=== PATIENT | male | born 1960 | race Caucasian/White ===

== ENCOUNTER 2022-06-18 05:07 | Observation (INO) ==
--- NOTE | 2022-05-25 14:56 | PAT Medication Instructions ---
Medication Instructions Date of Service May 25, 2022 Home Medications Medication Instructions Recorded amlodipine 5 mg tablet 2.5 mg PO DAILY #90 tabs 12/24/21 bumetanide 1 mg tablet 1 mg PO DAILY #90 tabs 02/02/22 lisinopril 20 mg tablet 20 mg PO DAILY #90 tabs 02/02/22 pantoprazole 40 mg tablet,delayed 40 mg PO DAILY #90 tabs 02/02/22 release folic acid 1 mg tablet 1 mg PO DAILY #90 tabs 04/17/22 albuterol sulfate 2.5 mg/3 mL (0.083 %) solution for nebulization 2.5 mg inhalation Q4H PRN albuterol sulfate 90 mcg/actuation aerosol inhaler 2 puff inhalation Q6H PRN ascorbate calcium (vitamin C) 1 tab PO DAILY cholecalciferol (vitamin D3) 125 mcg (5,000 unit) capsule 5,000 unit PO DAILY [id number] [Centrum Silver] 1 tab PO DAILY fluticasone fur. 100 mcg-umeclid 62.5 mcg-vilant 25 mcg inhalat.powder (Trelegy Ellipta) 1 inh inhalation QAM vitamin E (dl, acetate) 180 mg (400 unit) capsule 180 mg PO QAM zinc gluconate 50 mg tablet 50 mg PO QAM amlodipine 5 mg tablet 2.5 mg PO DAILY bumetanide 1 mg tablet 1 mg PO DAILY lisinopril 20 mg tablet 20 mg PO DAILY pantoprazole 40 mg tablet,delayed release 40 mg PO DAILY folic acid 1 mg tablet 1 mg PO DAILY ibuprofen 200 mg tablet (Motrin IB) 400 mg PO DAILY PRN Continue as directed amlodipine 5 mg tablet 2.5 mg PO DAILY pantoprazole 40 mg tablet,delayed release 40 mg PO DAILY ASK your surgeon for instructions ibuprofen 200 mg tablet (Motrin IB) 400 mg PO DAILY PRN STOP taking 2 weeks before surgery (or as soon as possible if surgery is within 2 weeks) vitamin E (dl, acetate) 180 mg (400 unit) capsule 180 mg PO QAM folic acid 1 mg tablet 1 mg PO DAILY DO NOT take the morning of surgery ascorbate calcium (vitamin C) 1 tab PO DAILY cholecalciferol (vitamin D3) 125 mcg (5,000 unit) capsule 5,000 unit PO DAILY [id number] [Centrum Silver] 1 tab PO DAILY zinc gluconate 50 mg tablet 50 mg PO QAM lisinopril 20 mg tablet 20 mg PO DAILY bumetanide 1 mg tablet 1 mg PO DAILY Take morning of surgery With a small sip of water, OTHERWISE NOTHING TO EAT OR DRINK AFTER MIDNIGHT: albuterol sulfate 2.5 mg/3 mL (0.083 %) solution for nebulization 2.5 mg inhalation Q4H PRN(if needed) albuterol sulfate 90 mcg/actuation aerosol inhaler 2 puff inhalation Q6H PRN(use if needed; please bring with you to hospital day of surgery if possible) fluticasone fur. 100 mcg-umeclid 62.5 mcg-vilant 25 mcg inhalat.powder (Trelegy Ellipta) 1 inh inhalation QAM Take evening before surgery albuterol sulfate 2.5 mg/3 mL (0.083 %) solution for nebulization 2.5 mg inhalation Q4H PRN(if needed) albuterol sulfate 90 mcg/actuation aerosol inhaler 2 puff inhalation Q6H PRN(if needed) Other Notes If you have any questions please call us at [phone] or [phone] or [phone] or [phone]
--- NOTE | 2022-05-26 08:36 | Anesthesiology Consultation ---
Date of Service May 26, 2022 Assessment & Plan (1) Encounter for pre-operative examination: - Case discussed in detail with Dr. Stock including dyspnea and he reviewed chart, advised pt is acceptable to proceed with surgery without further evaluation or testing from his standpoint. - facial hair: pt was advised to trim/shave facial hair. - Outpatient joint assessment: Patient is currently scheduled for inpatient pathway. If re-evaluated pending system levels during current pandemic/surgeon requests outpatient pathway, patient is not acceptable candidate for outpatient joint program from anesthesia standpoint. Chart Review Chart Review: Acceptable Risk for Surgery and Patient seen in Pre Admission Testing Teaching & Discussion Pre-Anesthesia Teaching/Discussion Notes: Instructed NPO after midnight before surgery, except medications with 15 cc of water. Medication instructions provided according to the PAT guidelines. History Surgery Operation Date: 06/18/22 07:15 Proposed Procedures p Right Shoulder Anatomic or - Lawrence Vazquez MD s Reverse Total Shoulder Arthroplasty - Lawrence Vazquez MD Height/Weight Height: 5 ft 10 in Weight: 152.3 kg Allergies Allergy/AdvReac Type Severity Reaction Status Date / Time No Known Allergies Allergy Verified 05/14/22 09:21 Medications Home Medications Medication Instructions Recorded Confirmed Last Taken albuterol sulfate 2.5 mg/3 mL 2.5 mg inhalation Q4H PRN 07/24/21 05/25/22 Unknown (0.083 %) solution for nebulization Shortness Of Breath Or Wheezing albuterol sulfate 90 mcg/actuation 2 puff inhalation Q6H PRN 07/24/21 05/25/22 Unknown aerosol inhaler Shortness Of Breath Or Wheezing ascorbate calcium (vitamin C) 1 tab PO DAILY 07/24/21 05/25/22 Unknown cholecalciferol (vitamin D3) 125 5,000 unit PO DAILY 07/24/21 05/25/22 Unknown mcg (5,000 unit) capsule [id number]-[id number] 1 tab PO DAILY 07/24/21 05/25/22 Unknown [Centrum Silver] fluticasone fur. 100 mcg-umeclid 1 inh inhalation QAM 10/28/21 05/25/22 Unknown 62.5 mcg-vilant 25 mcg inhalat.powder (Trelegy Ellipta) vitamin E (dl, acetate) 180 mg 180 mg PO QAM 10/28/21 05/25/22 Unknown (400 unit) capsule zinc gluconate 50 mg tablet 50 mg PO QAM 10/28/21 05/25/22 Unknown amlodipine 5 mg tablet 2.5 mg PO DAILY #90 tabs 12/24/21 05/25/22 Unknown bumetanide 1 mg tablet 1 mg PO DAILY #90 tabs 02/02/22 05/25/22 Unknown lisinopril 20 mg tablet 20 mg PO DAILY #90 tabs 02/02/22 05/25/22 Unknown pantoprazole 40 mg tablet,delayed 40 mg PO DAILY #90 tabs 02/02/22 05/25/22 Unknown release folic acid 1 mg tablet 1 mg PO DAILY #90 tabs 04/17/22 05/25/22 Unknown ibuprofen 200 mg tablet (Motrin IB) 400 mg PO DAILY PRN Pain 05/14/22 05/25/22 Unknown Past Medical History Medical History (Updated 05/26/22 @ 08:42 by Grace Alejandro PA-C) Asthma controlled w/ inhaler use; last albuterol inhaler several wks ago Chronic venous insufficiency COPD (chronic obstructive pulmonary disease) Coronary artery disease, non-occlusive cath 23 yrs ago, pre-op per pt GERD (gastroesophageal reflux disease) controlled, stable per pt History of COVID-19 (04/2020) X 3 - 1ST TIME 04/2020- COVID PNEUMONIA - LAST TIME WAS SPRING 2021- COVID PNEUMONIA, NO HOSPITALIZATION; PT UNSURE OF SECOND TIME History of drainage of abscess > 30 YRS AGO - [place] AREA History of recent fall 05/2022- TRIPPED AND FELL, CHEST CONTUSION Hx: recurrent pneumonia LAST TIME HOSPITALIZED 12/2021- WAS NOT COVID POSITIVE AT THAT TIME Hypertension controlled, stable per pt Iron deficiency pt reports IV ferritin annually, intolerant of oral supplementation Obstructive sleep apnea NO DEVICE, CAN NOT TOLERATE Patient denies h/o stroke, seizures, heart attack, heart failure, DM, blood clots or blood transfusions. Exercise / Class Metabolic Activity II 4-5 Yardwork/Stairs/Walk up hill (shortness of breath with 1 FOS, denies chest discomfort; ongoing x yrs without change or worsening) Past Family History Family History Father , age 63 Prostate cancer Skin cancer Myocardial infarction Diabetes CHF (congestive heart failure) Emphysema lung Mother , age 64 Myocardial infarction Diabetes Other Hypertension Denies family history of Ovarian cancer Breast cancer Colorectal cancer Past Surgical History Surgical History (Updated 05/26/22 @ 08:43 by Grace Alejadnro PA-C) History of esophagogastroduodenoscopy (EGD) History of lung biopsy benign Hx of cardiac catheterization NO STENTS - 1ST ~ 26 YRS AGO --2ND ~23 YRS AGO - [facility]- LAST CARDIO VISIT 12/2021- [facility] [place] [facility] - UNSURE Hx of colonoscopy S/P cholecystectomy S/P gastric surgery "stomach stapling" S/P hernia repair ventral, post-op S/P vasectomy Past Anesthesia History No Hx of Anesthesia Complications and No Family Hx of Anesthesia Complications History of PONV No Hx of PONV and Hx of Motion Sickness Social History Smoking Status: Never smoker Do You Dip or Chew Tobacco: No Hx Alcohol Use: No Hx Substance Use: No substance use type: does not use Review of Systems Chronic non-productive cough and wheezing, denies change or worsening. Patient denies chest pain, fever, chills, or palpitations. Physical Exam Vital Signs Vitals BP 140/90 P 76 TEMP 97.5 SP02 96% on RA RESP 18 Physical Long patiño Full cervical extension range of motion without pain TMD 3.5 finger breadths Mallampati Score 2 Dentition: edentulous Lungs: normal respiratory effort. Good air movement, clear throughout to auscultation, no adventitious breath sounds Cardiac: regular rate and rhythm, no murmurs noted Carotid arteries: negative bruit bilat Lab Results Anesthesia Preop Results Results Anesthesia Widget: WBC 8.31 K/ul (4.8-10.8) 05/26/22 Hgb 12.2 g/dl (14.0-18.0) L 05/26/22 Hct 38.4 % (40.1-51.0) L 05/26/22 Plt 309 K/uL (130-400) 05/26/22 Na 139 mmol/L (136-145) 05/26/22 K 3.9 mmol/L (3.5-5.1) 05/26/22 Cl 107 mmol/L (98-107) 05/26/22 CO2 28 mmol/L (21-32) 05/26/22 BUN 17 mg/dl (6-23) 05/26/22 Creat 0.88 mg/dl (0.6-1.4) 05/26/22 Glucose Level 137 mg/dl (70-99(Fasting)) H 05/26/22 PT 10.9 Seconds (9.0-12.0) 05/26/22 PTT 27.5 Seconds (21.0-31.0) 05/26/22 INR 1.0 (0.9-1.1) 05/26/22 Blood Type O Positive 05/26/22 Antibody Screen NEGATIVE 05/26/22 Testing Electrocardiogram Date: 12/06/21 Sinus rhythm, rate 98 bpm Chest X-Ray Date: 12/18/21 No active cardiopulmonary disease Previously demonstrated mild hazy infiltrates in the lung bases have resolved Echocardiogram Date: 12/07/21 EF 50-55% Mild diffuse hypokinesis No significant valvular pathology Stress Test Date: 12/30/21 Pharmacologic MPHR 60% 1. Negative myocardial perfusion study for ischemia. 2. Fixed defects likely due to attenuation artifact given normal wall motion. 3. Normal LV systolic function. EF 66%. 4. No significant Lexiscan induced symptoms. 5. Nondiagnostic Lexiscan ECG. Other Testing CT thorax 05/04/22 Mild dependent atelectatic changes at bilateral lung bases Probable scarring at the right lung apex is unchanged over multiple examinations No acute intrathoracic abnormality Redemonstration of patulous thoracic esophagus Chest CTA 12/06/21 Subtle patchy infiltrates in the upper lobes suspicious for early pneumonia possibly of COVID-19 origin Esophageal dilatation appears slightly more prominent than on prior studies. Soft tissue thickening in the EG junction however has not changed significantly COVID-19 Risk Screen Screening Information COVID-19 Screen Date: 05/26/22 Exposure 21 Days Family/Household +COVID Last 21 Days: No Exposure 10 Days Any COVID Exposure Last 10 Days: No Symptoms Last 10 Days Experienced COVID Sx Last 10 Days: No + COVID 0-90 Days COVID + in Last 0-90 Days: No
[2022-06-18] MEDS ORDERED: LR 60ML/HR IV SCH (06:00)
[2022-06-18] MEDS ORDERED: LR 15ML/HR IV SCH (06:00)
[2022-06-18] MEDS ORDERED: BUPIVACAINE 0.5 % 5 MG/1 ML PF 10ML VIAL ONE (06:29)
[2022-06-18] MEDS ORDERED: MIDAZOLAM HCL 1 MG/ML 2ML VIAL ONE (06:48)
[2022-06-18] MEDS ORDERED: fentaNYL citrate PF 100 MCG/2 ML VIAL ONE (06:49)
[2022-06-18] MEDS ORDERED: HYDROmorphone INJ 2 MG/ML SYR/VIAL IV PRN (06:58)
[2022-06-18] MEDS ORDERED: ePHEDrine sulfate 50 MG/ML AMP IV PRN (06:58)
[2022-06-18] MEDS ORDERED: ONDANSETRON INJ 2 MG/ML 2 ML VIAL IV PRN ×2 (06:58→12:29)
[2022-06-18] MEDS ORDERED: ATROPINE SULFATE 0.1 MG/ML 10ML SYR IV PRN (06:58)
--- NOTE | 2022-06-18 07:07 | History & Physical Bridge Note ---
Date of Service June 18, 2022 History & Physical Bridge Note I have examined the patient, reviewed the History & Physical and in the interval since the performance of the History & Physical I have noted the following changes of clinical significance: no changes noted
[2022-06-18] MEDS ORDERED: DEXAMETHASONE SOD INJ 4 MG/ML VIAL ONE (08:23)
[2022-06-18] MEDS ORDERED: ROCURONIUM BROMIDE 10 MG/ML 5 ML VIAL IV ONE (08:23)
[2022-06-18] MEDS ORDERED: PROPOFOL IV EMULSION 10 MG/ML 20 ML VIAL IV ONE (08:23)
[2022-06-18] MEDS ORDERED: LIDOCAINE 2% MPF LOCAL 5 ML VIAL INFIL ONE (08:24)
--- NOTE | 2022-06-18 10:51 | Operative Report ---
PG Post Operative Report Pre & Post Diagnosis Operation Date: 06/18/22 07:15 Pre-Op Diagnosis: Arthritis of Right Glenohumeral Joint Post-Op Diagnosis: Arthritis of Right Glenohumeral Joint I identified the patient and participated in the time-out.: Yes Procedure Operation Date: 06/18/22 07:15 Actual Procedures p Right Total Shoulder Arthoplasty, Cemented(Right) - Lawrence Vazquez MD Surgeon Lawrence Vazquez MD [employer] Machine Worker Johny Huntley PA-C Estimated Blood Loss 100 Findings See Below Tamara Biomet comprehensive anatomic shoulder arthroplasty was performed: Stem18 mm micro, Goodman size 5 augmented Glenoid with trabecular Metal Post, 50x24 humeral head with standard taper adaptor, Size 18 micro stem. The glenoid had expected cystic changes in the posterior inferior region. These were minimal and debrided of soft tissue before cement impaction during glenoid component placement. EXAMINATION UNDER ANESTHESIA: Preoperative exam under anesthesia revealed the followin degrees of forward flexion, 60 degrees external rotation at the side, 60 degrees of abduction which released with gentle manipulation to approximately 120, 60 degrees of external rotation and 20 degrees of internal rotation with the arm abducted. Postoperatively, range of motion parameters after implantation of prosthesis revealed a stable prosthesis with range of motion parameters as follows: 130 of forward flexion, 60 of external rotation at the side -45 to subscap repair tension, 120 of abduction, 90 of external rotation with the arm abducted, 20 of internal rotation with the arm abducted. The patient's safe range of motion included the ability to get to the back of the head. Internal rotation to the belly without significant tension. Specimens Humeral head for pathology Drains none Anesthesia Type General Regional Complications none Disposition Accompanied Patient To Recovery: No Disposition: Recovery Room Indications 62-year-old male with chronic and progressive shoulder pain consistent with glenohumeral arthritis. He had maximized nonoperative measures, was interested in more definitive treatment. I reviewed the risks, benefits, expected outcomes, required rehabilitation, techniques, and alternatives to shoulder arthroplasty. After discussion, he is interested in proceeding. Informed consent was obtained in the clinic. Description of Procedure The patient was identified in the preoperative holding area. The operative extremity was marked. Regional block was administered by Anesthesia. The patient was then brought to the operating room and placed supine. Preliminary time-out procedure was performed. All were in agreement. General endotracheal anesthesia was induced without any issues. The patient was sat up in around 40-45 degrees of inclination in the beachchair position. Exam under anesthesia was performed confirming the above findings. Preoperative antibiotics were administered. Sequential compressive devices were placed on the bilateral lower extremities for DVT prophylaxis. Bony prominences were inspected, well-padded and free of any evidence for peripheral nerve compression. The operative upper extremity was then prepped and draped in a normal standard fashion, with use of the Arthrex Trimano arm positioner and padded berger stand. Prior to incision, a second time-out procedure was performed confirming the patient, site, laterality and the procedure. All were in agreement. 1. Right shoulder open anatomic total shoulder replacement with alliance Augmented Cemented Glenoid component and with patient specific guide: A deltopectoral incision was utilized. Incision was carried out sharply and with electrocautery through the skin and subcutaneous tissues. The deltopectoral interval was developed. The cephalic vein was taken medially. Subdeltoid space was developed bluntly. A deltoid brown retractor was placed to retract the deltoid laterally and superiorly. 1 cm of the superior border of the pectoralis major tendon insertion site was released in standard fashion to improve exposure. Clavipectoral fascia was removed with electrocautery. Extensive subacromial bursitis was encountered and this was completely removed with a Bovie. The lateral aspect of the conjoined tendon was then followed to its insertion site on the coracoid. The conjoined tendon was retracted medially. The biceps tendon was identified, enlarged consistent with tendinopathy. It was released from the sheath using a Bovie and followed up into the rotator interval. A tenodesis was performed to the pectoralis major tendon as will be discussed in further detail below. A sharp Hohmann retractor was then placed into the interval and into the joint. Subscapularis tendon was still present and attached on the lesser tuberosity. The articular surface of the humeral head could be appreciated. The subscapularis tendon was then tagged with two ZB Max Braid sutures to gain control. [A very thin lesser tuberosity osteotomy was performed with a curved wide osteotome to release the entirety of the subscap with the capsule. Inferior capsular tissue was then released. The humeral head dislocated with successive extension and external rotation. Humeral neck releases were performed electrocautery with external rotation and a Hohmann retractor posteriorly to forward subluxate the humeral head. Inferior neck osteophytes were released all the way to 7:00 The rotator cuff insertion was without significant pathology. There was no evidence of tears. The subscapularis had been in good condition. The biceps tendon had evidence of tenosynovitis, impingement, and inflammatory degeneration. The top of the humeral head was identified. A starting awl was used sound the humeral canal. The bone quality was moderate. We opted to set the retroversion of the humeral cut at around 30 degrees of retroversion to match ho-chunk retroversion. The guide was fixed with 2 pins after adjustment for positioning. The humeral head resection was then made in parallel fashion to the guide. Sequential reaming was carried out starting with 4 mm broach. Successive trial broaches were then broached up to a size 18, which gave us excellent press-fit. The trial stem was left in place. Humeral protecting cap was then placed. We then proceeded over to the glenoid. An anterior glenoid neck retractor was placed. The MGHL and SGHL were released off of the muscular portion of the subscapularis being mindful of palpating and identifying the axillary nerve to make sure it was free of injury during releases. Next, the interval between the IGHL and the muscular portions of the subscapularis was identified. My finger was on the axillary nerve to protect it during releases. The IGHL was then released up to around the 7 o'clock position. A blunt retractor was then placed to retract the humerus posteriorly. A sharp Hohmann retractor was placed at the 12 o'clock position. The glenoid deformity was evaluated with assistance with the bone model. Extraneous capsulolabral tissue was dissected to reveal the bone anatomy. This confirmed our decision to proceed with preoperative virtual planning. The arm was placed around 30 degrees of flexion, 90 degrees of external rotation and slight adduction to distract the humerus posteriorly and inferiorly in line with her humeral cut that was protected. Labrum was circumferentially removed including the biceps tendon stump with a Bovie. A patient specific guide was used to place an initial guide pin, followed by the more superior pin. The patient specific guide was then removed. The custom reamer guide was placed on the superior pin and the reamer was brought down the central pin. Reaming was conducted based on the guide and preoperative plan for implant size. Irrigation was used and we confirmed adequate reaming. The central post drill was then brought down the central pin. This was irrigated again. The drill guide for the pegs was placed down over the pin and locked into the socket for the central post. The peg positions were then drilled, and this guide was removed. The bushing for the augment reamer was then advanced down and placed into the central post socket and one of the pegs, per the preoperative plan. The augmented reamer blade was slowed down over the central pain, and hexagonal ball was placed down onto the reamer. The augment reamer was conducted. Copious irrigation was performed to irrigate out the joint. The trial according to our preoperative plan was placed. It had good fit to the glenoid and coverage. The trial was then removed. The final implant was opened on the back table. Cement mixing was commenced. Mixing 1 for 90 seconds. Once the cement was of good consistency, the backside of the polyethylene implant was coated with a thin layer, ensuring not to put any on the central trabecular metal post. The pressurized cement gun was used to place cement in each of the peg holes under pressure. Any cystic cavitary lesions were also filled. The final glenoid implant was then introduced and deployed into its socket and peg holes. It was tamped down with the impactor and held firmly while the cement cured. Irrigation was conducted around. Extraneous cement was curetted from the margins and removed from the wound. Humerus was then brought back into view with external rotation, deltoid brown retractor and multiple blunt Homans. The trial humeral head matching are measured humeral head cut was then fixed onto the trial broach. I rotated the head to cover the cut surface using the eccentricity of the system. It was tightened in place. The humerus was then reduced onto the glenoid with the arm in abduction and external rotation. The arm was taken out of the hutchison, taken through a physiologic range of motion. No evidence for impingement. No evidence for kick off. Appropriate capsular tension was found. About 50% posterior translation was present with posterior directed force. I did upsize the head once however the coverage was excessive, so we switched back to the size that matched our humeral head cut. Thus, the trials would be a most appropriate for stability. Next, the trial humeral trial components were removed. The final stem prosthesis was then brought onto the field. The head was dialed into into the eccentricity that matched our trial. The head was tamped on the back table to secure the offset that match the desired humeral cut coverage. Humeral canal was copiously irrigated. Four 2.0 mm drill holes were then placed in the bicipital groove just lateral to the lesser tuberosity. Tamara Biomet max braid suture was passed through for later subscapularis repair.. The final humeral component was then brought back on to the field and seated firmly into the humerus, securing our subscap sutures. Excellent press-fit was achieved. The humeral head component was then introduced onto the trunnion, and the Wilson taper was locked on using a mallet and impactor. Thus, this completed the humeral component implantation. With the final components in place, humeral component was then reduced onto the glenoid and final postoperative range of motion assessment was performed. Stability confirmed. Thorough pulse lavage irrigation was performed to evacuate all debris and lavage the capsule, surrounding soft tissues, and components. Dilute Betadine irrigant was then run through the joint and left in place for several minutes while we prepared for closure and subscap repair. The Rich Retractor was placed immediately just inside the conjoint tendon, with the deltoid retracted laterally. The arm was placed in internal rotation. The subscapularis was then repaired to the humerus using a Lopez-Andrew configuration and the 4 high-grade tape sutures that were passed about the lesser tuberosity before implantation. The subscap repair had appropriate tension. External rotation about 45 degrees was achieved before excessive tension developed. This completed the open reverse total shoulder replacement. Final lavage with a dilute Betadine was performed. This was followed by copious normal saline irrigation. 2. Open biceps tenodesis: As dictated above, tendinopathy of the biceps tendon was noted. A tenodesis was opted. The tendon was released from the bicipital sheath using a Bovie and then tenodesed to the pectoralis major tendon using a two #2 Arthrex FiberWire stitches in a [id number] fashion. The tendon was then followed up as proximal as could be visualized and then tenotomized. Remaining stump was removed just proximal to the tenodesis site. This completed the open biceps tenodesis. The wound was copiously irrigated. The deltopectoral incision was closed with interrupted #1 Vicryl stitches.. Subcutaneous adipose tissues were closed with #1 Vicryl suture in buried, interrupted fashion. Dermal closure was accomplished using buried knot 20 Vicryl. Final skin closure was with sukumar. The wound was dressed with sterile Xeroform, sterile gauze, ABDs, and contained by Tegaderm dressings. The patient was placed in a postoperative sling and turned over to the anesthesia team. The patient tolerated procedure well, was extubated in the operating without complication, and transferred to the PACU in stable condition. DISPOSITION: The patient will remain in sling for a total of 6 weeks. Hand, wrist, and elbow range of motion exercises may be initiated. After 6 weeks, the sling will be discontinued. Formal therapy will be initiated starting with gentle passive range of motion and active range of motion. No strengthening will be permitted before 12 weeks. When strengthening is allowed, only gentle strengthening will be allowed. Physician phys assistant attestation: Johny Huntley PA-C was present and scrubbed for the duration of the case. He was essential to prepping/draping, patient positioning, retraction, and assistance with wound closure. I attest to the content of the Intraoperative Record and any orders documented therein. Any exceptions are noted below.
--- NOTE | 2022-06-18 10:51 | Post Operative Brief Note ---
PG Immediate Post Op with CF Date of Surgery June 18, 2022 Pre & Post Diagnosis Operation Date: 06/18/22 07:15 Pre-Op Diagnosis: Arthritis of Right Glenohumeral Joint Post-Op Diagnosis: Arthritis of Right Glenohumeral Joint I identified the patient and participated in the time-out.: Yes Procedure Operation Date: 06/18/22 07:15 Actual Procedures p Right Total Shoulder Arthoplasty, Cemented(Right) - Lawrence Vazquez MD Surgeon Lawrence Vazquez MD Vendor Management Associate Johny Huntley PA-C Estimated Blood Loss 100 Findings Consistent with Post-Op Diagnosis Specimens Specimen Description: A: portion of right humeral head Anesthesia Type General Regional
[2022-06-18] MEDS: fentaNYL citrate PF 100 MCG/2 ML VIAL IV PRN ×2 (11:15→11:28)
--- NOTE | 2022-06-18 11:36 | XRay Report ---
XR shoulder RT min 2V routine CLINICAL HISTORY: Post shoulder surgery TECHNIQUE: 3 views of the right shoulder were obtained. Comparison: Comparison is made to CT right shoulder 05/26/2022 FINDINGS: Patient is status post shoulder arthroplasty with expected postsurgical changes including soft tissue swelling and subcutaneous emphysema. No periarticular lucency or hardware fracture is seen. IMPRESSION: Expected postoperative appearance status post placement of shoulder arthroplasty. ACT 112: Negative or not required by law. Electronically signed by: Good Centeno M.D. 06/18/2022 11:35 AM
--- NOTE | 2022-06-18 11:38 | Anesthesiology Progress Note ---
Date of Service June 18, 2022 Anesthesia Post Procedure Vital Signs Vital Signs: Temp Pulse Pulse Resp BP BP Pulse Ox 06/18/22 11:20 71 22 124/71 94 06/18/22 11:30 77 19 124/77 96 06/18/22 11:10 74 20 124/62 96 06/18/22 11:00 36 C L 78 22 119/80 94 06/18/22 05:47 36.6 C 75 18 132/70 98 O2 Del Method O2 Flow Rate 06/18/22 11:20 Oxymask 2 06/18/22 11:30 Oxymask 2 06/18/22 11:10 Oxymask 4 06/18/22 11:00 Oxymask 4 06/18/22 05:47 Room Air Pain Intensity Right Shoulder: Pain Intensity: 3 Right Elbow: Pain Intensity: 5 Transfer of Care Handoff Completed per policy Notes Mental Status: alert / awake / arousable and participated in evaluation Patient Amnestic to Procedure: Yes Nausea / Vomiting: adequately controlled Pain: adequately controlled Airway Patency, RR, SpO2: stable & adequate BP & HR: stable & adequate Hydration State: stable & adequate Anesthetic Complications: no major complications apparent and Pt Satisfied with anesthetic care
[2022-06-18] MEDS ORDERED: MAGNESIUM HYDROXIDE SUSP 30 ML UDC PO PRN (12:29)
[2022-06-18] MEDS ORDERED: METOCLOPRAMIDE HCL INJ 5 MG/ML 2 ML VIAL IV PRN (12:29)
[2022-06-18] MEDS ORDERED: ALBUTEROL 0.083% NEBU SOLN 3 ML VIAL INH PRN (12:29)
[2022-06-18] MEDS ORDERED: bisacodyL 10 MG SUPP PR PRN (12:29)
[2022-06-18] MEDS ORDERED: NALOXONE HCL 0.4 MG/1 ML VIAL/CARP IV PRN (12:29)
[2022-06-18] MEDS ORDERED: oxyCODONE HCL IR 5 MG TAB (IMMEDIATE RELEASE) PO PRN (12:29)
[2022-06-18] MEDS: SODIUM CHLORIDE 0.9% 1000ML 1,000 ML IV SCH (12:46)
[2022-06-18] MEDS: ACETAMINOPHEN 500 MG TAB PO SCH ×2 (13:11→21:39)
[2022-06-18] MEDS: ceFAZolin 2000MG 2,000 MG/15 ML SYR IV SCH (17:05)
[2022-06-18] MEDS: DOCUSATE SODIUM 100 MG CAP PO SCH (21:39)
[2022-06-18] MEDS: SENNA 8.6 MG TAB PO SCH (21:39)
[2022-06-19] MEDS: SODIUM CHLORIDE 0.9% 1000ML 1,000 ML IV SCH (00:07)
[2022-06-19] MEDS: ceFAZolin 2000MG 2,000 MG/15 ML SYR IV SCH (01:32)
[2022-06-19] MEDS: ACETAMINOPHEN 500 MG TAB PO SCH ×3 (05:53→21:30)
[2022-06-19 06:34] LABS: Basophils # (auto) 0.03 K/uL (0-0.2); Basophils % (auto) 0.2 %; Eosinophils # (auto) 0.01 K/uL (0-0.50); Eosinophils % (auto) 0.1 %; Hematocrit (blood only) 36.1 % (42.0-52.0); Hemoglobin 11.8 g/dl (14.0-18.0); Immature Granulocytes # (auto) 0.12 K/uL (0.01-0.20); Immature Granulocytes % (auto) 0.8 %; Lymphocytes # (auto) 1.67 K/uL (1.2-3.4); Lymphocytes % (auto) 10.7 %; Mean Corpuscular Hemoglobin 27.7 pg (25.0-34.0); Mean Corpuscular Hgb Conc 32.7 g/dL (32.0-36.0); Mean Corpuscular Volume 84.7 fL (80.0-100.0); Monocytes % (auto) 11.6 %; Neutrophils # (auto) 11.93 K/uL (1.40-6.50); Neutrophils % (auto) 76.6 %; Platelet Count 269 K/uL (130-400); RDW Coefficient of Variation 14.7 % (11.5-14.5); RDW Standard Deviation 44.9 fL (36.4-46.3); Red Blood Count 4.26 M/uL (4.70-6.10); White Blood Count 15.56 K/ul (4.8-10.8)
[2022-06-19 06:49] LABS: BUN Creatinine Ratio 19.5 (10-20); Creatinine Clr Calc Pharmacy 125.7 ml/min; Est GFR (African American) 106.5 ml/min; Est GFR (Non-African American) 91.9 ml/min; Potassium 4.3 mmol/L (3.5-5.1)
[2022-06-19] MEDS: ASCORBIC ACID 500 MG TAB PO SCH (08:29)
[2022-06-19] MEDS: TOCOPHERYL, DL-ALPHA 400 UNITS 180 MG CAP PO SCH (08:29)
[2022-06-19] MEDS: ZINC SULFATE 220 MG CAPSULE PO SCH (08:29)
[2022-06-19] MEDS: BUMETANIDE 1 MG TAB PO SCH (08:29)
[2022-06-19] MEDS: lisinopril 20 MG TAB PO SCH (08:29)
[2022-06-19] MEDS: amLODIPine BESYLATE 5 MG TAB PO SCH (08:29)
[2022-06-19] MEDS: MULTIVITAMIN TAB PO SCH (08:29)
[2022-06-19] MEDS: PANTOprazole 40 MG TAB PO SCH (08:29)
[2022-06-19] MEDS: CHOLECALCIFEROL 5,000 UNITS 125 MCG TAB PO SCH (08:29)
[2022-06-19] MEDS: FOLIC ACID 1 MG TAB PO SCH (08:30)
[2022-06-19] MEDS: ASPIRIN 81 MG ECTAB PO SCH ×2 (08:30→21:30)
[2022-06-19] MEDS: UMECLIDINIUM/VILANTEROL 62.5/25MCG 7 PUFFS/INHALER INH SCH (08:33)
[2022-06-19] MEDS: FLUTICASONE FUROATE 100MCG 14 PUFFS/INHALER INH SCH (08:33)
[2022-06-19] MEDS: DOCUSATE SODIUM 100 MG CAP PO SCH ×2 (08:33→21:28)
[2022-06-19] MEDS ORDERED: MULTIVITAMIN MINERALS LUTEIN PO SCH (09:00)
--- NOTE | 2022-06-19 12:29 | Orthopedic Progress Note ---
Date of Service June 19, 2022 Assessment & Plan (1) History of right shoulder replacement: POD1 s/p R TSA for GH Arthritis. Recovering as expected with exception of bilateral foot parasthesias, which is most likely due to surgical positioning. - Evaluate parasthesias after mobilization with PT/OT. If high fall risk, may need further rehab - Consider hospitalist consult for parasthesias if no improvement today - Complete 24 abx ppx - Recommended ASA dvt ppx with chronic venous insufficiency and postoperative state. Subjective Pain is minimal at shoulder Does complain that both legs feel numb below the knee. Otherwise, appetite is good. Up and about with nursing and PT Review of Systems All systems reviewed & are unremarkable except as noted in HPI & below. Physical Exam RUE: dressing c/d/i. Full motor activity to hand. Minimal sensation proximal arm and shoulder, as expected due to block. BLE: Intact discriminatory LT sensation - says diminished. FAROM through ankles and toes. Constitutional WD/WN, vitals as above no acute distress and not intoxicated appearing Respiratory normal respiratory effort; no labored breathing Cardiovascular Extremities: normal capillary refill Results & Data Results & Data Laboratory Results . Diagnostic Findings . PG Care Time/CCT Total # of Minutes Spent Total Time Spent with Patient: Total time spent is greater than 50% in coordination of care (as documented) at patient's floor/unit and/or counseling patient: Coding Level of Care Code 41809 Post Operative Follow-Up Diagnoses History of right shoulder replacement Z96.611
[2022-06-19] MEDS: SENNA 8.6 MG TAB PO SCH (21:29)
[2022-06-20] MEDS: ACETAMINOPHEN 500 MG TAB PO SCH ×2 (06:06→14:25)
[2022-06-20] MEDS: PANTOprazole 40 MG TAB PO SCH (07:14)
--- NOTE | 2022-06-20 08:38 | Orthopedic Progress Note ---
Date of Service June 20, 2022 Assessment & Plan (1) History of right shoulder replacement: POD2 s/p R TSA for GH Arthritis. Improved this morning. Bilateral foot paresthesias much improved and now isolated to the plantar aspect of his left forefoot - Patient adamant about going home today. Agreeable to wait until PT and OT sessions to reevaluate his safety. - We will prep for discharge. If fails PT and OT, will need to have case management reengage for disposition Subjective Reports that he is doing much better today. Was able to ambulate from the bathroom back to his chair without issue. Feels confident to go home. Understands that PT/OT did not feel be safe for home yesterday. He thinks he will do better today. Has no desire to go to rehabilitation facility. He says his right foot is back to feeling normal. The left foot is "almost" normal. There is still some numbness in the ball of his foot and toes. He was having some bilateral ankle pain overnight, but it felt better when he was moving them. Review of Systems All systems reviewed & are unremarkable except as noted in HPI & below. Physical Exam BLE: No skin changes. No substantial edema. Full active range of motion of his tibiotalar and subtalar joints. Full range of motion through the toes. 5 out of 5 strength to DF/PF/EHL. Light touch sensation intact throughout with the exception of diminished sensation on the plantar side of his left forefoot and toes. Protective sensation present on the dorsal side. RUE: Dressing is clean dry and intact. The sling was well fit. Constitutional WD/WN, vitals as above no acute distress and not intoxicated appearing Respiratory normal respiratory effort; no labored breathing Cardiovascular Extremities: normal capillary refill Results & Data Results & Data Laboratory Results . Diagnostic Findings . PG Care Time/CCT Total # of Minutes Spent Total Time Spent with Patient: Total time spent is greater than 50% in coordination of care (as documented) at patient's floor/unit and/or counseling patient: Coding Level of Care Code 51350 Post Operative Follow-Up Diagnoses History of right shoulder replacement Z96.611
[2022-06-20] MEDS: amLODIPine BESYLATE 5 MG TAB PO SCH (08:46)
[2022-06-20] MEDS: lisinopril 20 MG TAB PO SCH (08:46)
[2022-06-20] MEDS: ZINC SULFATE 220 MG CAPSULE PO SCH (08:46)
[2022-06-20] MEDS: MULTIVITAMIN TAB PO SCH (08:46)
[2022-06-20] MEDS: BUMETANIDE 1 MG TAB PO SCH (08:46)
[2022-06-20] MEDS: ASCORBIC ACID 500 MG TAB PO SCH (08:46)
[2022-06-20] MEDS: DOCUSATE SODIUM 100 MG CAP PO SCH (08:47)
[2022-06-20] MEDS: FLUTICASONE FUROATE 100MCG 14 PUFFS/INHALER INH SCH (08:47)
[2022-06-20] MEDS: ASPIRIN 81 MG ECTAB PO SCH (08:47)
[2022-06-20] MEDS: TOCOPHERYL, DL-ALPHA 400 UNITS 180 MG CAP PO SCH (08:47)
[2022-06-20] MEDS: UMECLIDINIUM/VILANTEROL 62.5/25MCG 7 PUFFS/INHALER INH SCH (08:47)
[2022-06-20] MEDS: FOLIC ACID 1 MG TAB PO SCH (08:47)
[2022-06-20] MEDS: CHOLECALCIFEROL 5,000 UNITS 125 MCG TAB PO SCH (08:47)
--- NOTE | 2022-07-20 17:14 | Discharge Summary ---
Date of Service July 20, 2022 Admission HPI (Per Admitting) 62 yo admitted after total shoulder arthroplasty to treat end stage osteoarthritis of the glenohumeral joint. Principal Diagnosis Same as "Discharge Diagnosis" noted below under Discharge Instructions. Discharge Exam BLE: No skin changes. No substantial edema. Full active range of motion of his tibiotalar and subtalar joints. Full range of motion through the toes. 5 out of 5 strength to DF/PF/EHL. Light touch sensation intact throughout with the exception of diminished sensation on the plantar side of his left forefoot and toes. Protective sensation present on the dorsal side. RUE: Dressing is clean dry and intact. The sling was well fit. Discharge Data Procedures Performed Operation Date: 06/18/22 07:15 Actual Procedures p Right Total Shoulder Arthoplasty, Cemented(Right) - Lawrence Vazquez MD Ordered Studies 06/18/22 05:00 US - OR guided needle placemen Routine Hospital Course (1) History of right shoulder replacement: (2) Balance disorder: Plan Admitted after routine total shoulder arthroplasty due to age and medical comorbidities. PT and OT evaluations showed balance deficits and patient complained of bilateral LE parasthesias. On POD2 he was found to be improved and safe for discharge to outpatient care. PG Care Time/CCT Total # of Minutes Spent Total Time Spent with Patient: Total time spent is greater than 50% in coordination of care (as documented) at patient's floor/unit and/or counseling patient: Discharge Plan Discharge Items Patient Disposition: Home - Self-Care Reason For Visit: Arthritis of Right Glenohumeral Joint Discharge Diagnosis: Same as above Activity: Per Instructions section Non-emergency contact: Surgeon Call non-emergency contact if: you have any medication questions, your pain is not controlled and your temperature is above 101 Follow-up/Referrals: Teri Armstrong DO [Primary Care Provider] - Lawrence Vazquez MD [Surgeon] - 07/03/22 11:20 am Diet: Regular Addtl Attending Provider Instructions: Lawrence Vaqzuez M.D. [facility] Orthopedic Surgery [address], [place] [address] SHOULDER REPLACEMENT PROCEDURES WOUND CARE: Leave your dressing in place and keep the area clean and dry. After 3 days, you may remove your dressing. DO NOT REMOVE ANY CASSIDY. After removing your dressing, you may begin to shower. Do not soak the incision. Allow gentle soap and water to run over the wound(s) and pat dry. Please cover the incision(s) with a clean, dry dressing, as needed. Do not use any ointments or topical medications unless directed by your surgeon. Do not submerse the incisions in water no pools, oceans, lakes, jacuzzis, bathtubs, etc for at least 3 weeks. ACTIVITY: Remain in the sling provided. Do not lift anything heavier than a cup of coffee with that hand. You may type or use a keyboard as tolerated. You may come out of the sling for careful hygiene and Range of Motion exercises, only. Please perform ROM (range of motion) exercises at least three times daily: 1. Wrist flexion and extension 2. Finger pump 3. Elbow flexion/extension and forearm rotation 4. Supported Codmans Exercises come out of sling, dangle your affected arm. Use your nonoperative (good) arm to support your operative (getting better!) arm at the elbow. Gently rotate/swing your operative arm in a pendulum motion for 1-2 minutes. Rest. Repeat three times. Do not reach out to your side (do not rotate your hand laterally NO EXTERNAL ROTATION) PAIN CONTROL: Use frequent ice to reduce amount of pain medications. Use for 30 minutes per hour. Do not leave in place longer than 30 minutes, especially when your block is in effect, to prevent frostbite or thermal injury. MEDICATIONS: 1. Oxycodone (OxyIR) 1-2 tablet(s) orally every 4 hours for pain as needed. Use with Tylenol. Begin tapering OxyIR as soon as possible: reduce from 2 to 1 pills per dose, then spread out the doses over greater time intervals, then try to use only for therapy or for comfort while sleeping. C ontinue to use regular Tylenol until pain subsides. 2. Tylenol (325mg): 3 tablets every 8 hours orally. Regular dosing of Tylenol is an important part of your baseline pain control. Do not taper Tylenol until you have successfully tapered off of regular OxyIR. Do not take more than 3000mg of Tylenol per day. 3. Zofran 1 tablet orally every 6 hours as needed for nausea related to anesthesia, pain, and narcotic medications 4. Daily Aspirin - continue for relative protection against blood clots until normal mobility returns. OVER THE COUNTER: Narcotics will cause constipation. Colace and or Miralax can help while you are taking oxycodone or other narcotics. 4. Colace (100mg): take 1-2 tabs twice daily to avoid constipation from OxyIR or other narcotics. 5. Miralax 1 tablespoon in a glass of water 2 times daily until normal bowel movements FOLLOWUP: 1. Ortho Clinic with Dr. Vazquez: You should be seen in 10-14 days. Please call immediately to schedule if you do not have an appointment. 2. PHYSICAL THERAPY: A referral will be placed to [facility] in [place]. Please schedule to be seen within the next 1-2 weeks. Pending Studies at Discharge: No Stand-Alone Forms: My [facility] [employer], Pain - Opioid Pain Management Medications and DC Order Prescriptions: New ondansetron HCl 4 mg tablet 4 mg PO Q6H PRN (Reason: nausea and vomiting) Qty: 12 0RF oxycodone 5 mg tablet 5 - 10 mg PO Q4H PRN (Reason: pain, initial therapy) Qty: 18 0RF Rx Instructions: 1-2 tabs every 4 hours as needed for pain; maximum 6 tabs daily (DME) Walking Cane Misc See Rx Instructions .Route Qty: 1 0RF Rx Instructions: As directed, WBQC Continued folic acid 1 mg tablet 1 mg PO DAILY Qty: 90 0RF vitamin E (dl, acetate) 180 mg (400 unit) capsule 180 mg PO QAM zinc gluconate 50 mg tablet 50 mg PO QAM Trelegy Ellipta 100-62.5-25 mcg blister with device 1 inh inhalation QAM albuterol sulfate 90 mcg/actuation HFA aerosol inhaler 2 puff inhalation Q6H PRN (Reason: Shortness Of Breath Or Wheezing) albuterol sulfate 2.5 mg /3 mL (0.083 %) solution for nebulization 2.5 mg inhalation Q4H PRN (Reason: Shortness Of Breath Or Wheezing) ascorbate calcium (vitamin C) 1 tab PO DAILY [id number] [Centrum Silver] 1 tab PO DAILY cholecalciferol (vitamin D3) 125 mcg (5,000 unit) capsule 5,000 unit PO DAILY ibuprofen [Motrin IB] 200 mg tablet 400 mg PO DAILY PRN (Reason: Pain) pantoprazole 40 mg tablet,delayed release (DR/EC) 40 mg PO DAILY Qty: 90 1RF lisinopril 20 mg tablet 20 mg PO DAILY Qty: 90 1RF bumetanide 1 mg tablet 1 mg PO DAILY Qty: 90 1RF amlodipine 2.5 mg tablet 2.5 mg PO DAILY Qty: 90 1RF Discharge Orders: Discharge Order (Routine); Ordered 06/20/22 Ordered By: Lawrence Simpson/Other Patient Handouts: Shoulder Replace Home Recovery Admission Data Admit Date/Time: 06/18/22 10:56 Attending Provider: Lawrence Vazquez Admit Provider: Lawrence Vazquez Primary Care Provider: Teri Armstrong Other Interventions: Discharge Summary Assessment (RN) Last Done: 06/20/22 13:30
--- NOTE | 2022-07-21 08:09 | Discharge Summary ---
Date of Service July 21, 2022 Admission HPI (Per Admitting) 62 yo admitted after total shoulder arthroplasty to treat end stage osteoarthritis of the glenohumeral joint. Principal Diagnosis Same as "Discharge Diagnosis" noted below under Discharge Instructions. Discharge Exam BLE: No skin changes. No substantial edema. Full active range of motion of his tibiotalar and subtalar joints. Full range of motion through the toes. 5 out of 5 strength to DF/PF/EHL. Light touch sensation intact throughout with the exception of diminished sensation on the plantar side of his left forefoot and toes. Protective sensation present on the dorsal side. RUE: Dressing is clean dry and intact. The sling was well fit. Discharge Data Procedures Performed Operation Date: 06/18/22 07:15 Actual Procedures p Right Total Shoulder Arthoplasty, Cemented(Right) - Lawrence Vazquez MD Ordered Studies 06/18/22 05:00 US - OR guided needle placemen Routine Hospital Course (1) History of right shoulder replacement: Admitted on 06/18/2022 after elective R TSA. Surgery went well with no complications. Post operatively he had some transient bilateral lower extremity numbness that resolved with no specific treatment. Otherwise no complications. Discharged home on POD 2. PG Care Time/CCT Total # of Minutes Spent Total Time Spent with Patient: Total time spent is greater than 50% in coordination of care (as documented) at patient's floor/unit and/or counseling patient: Discharge Plan Discharge Items Patient Disposition: Home - Self-Care Reason For Visit: Arthritis of Right Glenohumeral Joint Discharge Diagnosis: Same as above Activity: Per Instructions section Non-emergency contact: Surgeon Call non-emergency contact if: you have any medication questions, your pain is not controlled and your temperature is above 101 Follow-up/Referrals: Teri Armstrong DO [Primary Care Provider] - Lawrence Vazquez MD [Surgeon] - 07/03/22 11:20 am Diet: Regular Addtl Attending Provider Instructions: Lawrence Vazquez M.D. [facility] Orthopedic Surgery [address] [facility], [place] [address] SHOULDER REPLACEMENT PROCEDURES WOUND CARE: Leave your dressing in place and keep the area clean and dry. After 3 days, you may remove your dressing. DO NOT REMOVE ANY CASSDIY. After removing your dressing, you may begin to shower. Do not soak the incision. Allow gentle soap and water to run over the wound(s) and pat dry. Please cover the incision(s) with a clean, dry dressing, as needed. Do not use any ointments or topical medications unless directed by your surgeon. Do not submerse the incisions in water no pools, oceans, lakes, jacuzzis, bathtubs, etc for at least 3 weeks. ACTIVITY: Remain in the sling provided. Do not lift anything heavier than a cup of coffee with that hand. You may type or use a keyboard as tolerated. You may come out of the sling for careful hygiene and Range of Motion exercises, only. Please perform ROM (range of motion) exercises at least three times daily: 1. Wrist flexion and extension 2. Finger pump 3. Elbow flexion/extension and forearm rotation 4. Supported Codmans Exercises come out of sling, dangle your affected arm. Use your nonoperative (good) arm to support your operative (getting better!) arm at the elbow. Gently rotate/swing your operative arm in a pendulum motion for 1-2 minutes. Rest. Repeat three times. Do not reach out to your side (do not rotate your hand laterally NO EXTERNAL ROTATION) PAIN CONTROL: Use frequent ice to reduce amount of pain medications. Use for 30 minutes per hour. Do not leave in place longer than 30 minutes, especially when your block is in effect, to prevent frostbite or thermal injury. MEDICATIONS: 1. Oxycodone (OxyIR) 1-2 tablet(s) orally every 4 hours for pain as needed. Use with Tylenol. Begin tapering OxyIR as soon as possible: reduce from 2 to 1 pills per dose, then spread out the doses over greater time intervals, then try to use only for therapy or for comfort while sleeping. Continue to use regular Tylenol until pain subsides. 2. Tylenol (325mg): 3 tablets every 8 hours orally. Regular dosing of Tylenol is an important part of your baseline pain control. Do not taper Tylenol until you have successfully tapered off of regular OxyIR. Do not take more than 3000mg of Tylenol per day. 3. Zofran 1 tablet orally every 6 hours as needed for nausea related to anesthesia, pain, and narcotic medications 4. Daily Aspirin - continue for relative protection against blood clots until normal mobility returns. OVER THE COUNTER: Narcotics will cause constipation. Colace and or Miralax can help while you are taking oxycodone or other narcotics. 4. Colace (100mg): take 1-2 tabs twice daily to avoid constipation from OxyIR or other narcotics. 5. Miralax 1 tablespoon in a glass of water 2 times daily until normal bowel movements FOLLOWUP: 1. Ortho Clinic with Dr. Vazquez: You should be seen in 10-14 days. Please call immediately to schedule if you do not have an appointment. 2. PHYSICAL THERAPY: A referral will be placed to [facility] in [place]. Please schedule to be seen within the next 1-2 weeks. Pending Studies at Discharge: No Stand-Alone Forms: My [facility] [employer], Pain - Opioid Pain Management Medications and DC Order Prescriptions: New ondansetron HCl 4 mg tablet 4 mg PO Q6H PRN (Reason: nausea and vomiting) Qty: 12 0RF oxycodone 5 mg tablet 5 - 10 mg PO Q4H PRN (Reason: pain, initial therapy) Qty: 18 0RF Rx Instructions: 1-2 tabs every 4 hours as needed for pain; maximum 6 tabs daily (DME) Walking Cane Misc See Rx Instructions .Route Qty: 1 0RF Rx Instructions: As directed, WB Continued folic acid 1 mg tablet 1 mg PO DAILY Qty: 90 0RF vitamin E (dl, acetate) 180 mg (400 unit) capsule 180 mg PO QAM zinc gluconate 50 mg tablet 50 mg PO QAM Trelegy Ellipta 100-62.5-25 mcg blister with device 1 inh inhalation QAM albuterol sulfate 90 mcg/actuation HFA aerosol inhaler 2 puff inhalation Q6H PRN (Reason: Shortness Of Breath Or Wheezing) albuterol sulfate 2.5 mg /3 mL (0.083 %) solution for nebulization 2.5 mg inhalation Q4H PRN (Reason: Shortness Of Breath Or Wheezing) ascorbate calcium (vitamin C) 1 tab PO DAILY [id number] [Centrum Silver] 1 tab PO DAILY cholecalciferol (vitamin D3) 125 mcg (5,000 unit) capsule 5,000 unit PO DAILY ibuprofen [Motrin IB] 200 mg tablet 400 mg PO DAILY PRN (Reason: Pain) pantoprazole 40 mg tablet,delayed release (DR/EC) 40 mg PO DAILY Qty: 90 1RF lisinopril 20 mg tablet 20 mg PO DAILY Qty: 90 1RF bumetanide 1 mg tablet 1 mg PO DAILY Qty: 90 1RF amlodipine 2.5 mg tablet 2.5 mg PO DAILY Qty: 90 1RF Discharge Orders: Discharge Order (Routine); Ordered 06/20/22 Ordered By: Lawrence Simpson/Other Patient Handouts: Shoulder Replace Home Recovery Admission Data Admit Date/Time: 06/18/22 10:56 Attending Provider: Lawrence Vazquez Admit Provider: Lawrence Vazquez Primary Care Provider: Teri Armstrong Other Interventions: Discharge Summary Assessment (RN) Last Done: 06/20/22 13:30
== END 2022-06-20 16:34 | disposition home or self-care (01) ==
LOC: ASU 05:07 → 3E 05:07

== ENCOUNTER 2024-08-24 09:01 | Inpatient (IN) ==
--- NOTE | 2024-07-26 09:23 | PAT Medication Instructions ---
Medication Instructions Date of Service July 26, 2024 Home Medications Medication Instructions Recorded syringe with needle 3 mL 23 x 1" #50 ea 11/20/22 (BD SafetyGlide Syringe) folic acid 1 mg tablet 1 mg PO QAM #90 tabs 06/17/23 3-in-1 Commode #1 ea 09/24/23 Shower Chair #1 ea 09/24/23 Donaldo Hose #1 ea 09/24/23 Wheeled Walker #1 ea 09/24/23 mecobalamin (vitamin B12) 1,000 1,000 mcg sublingual DAILY #30 tabs 01/10/24 mcg disintegrating tablet,sublingual lisinopril 20 mg tablet 20 mg PO QAM #90 tabs 03/06/24 rosuvastatin 20 mg tablet 20 mg PO QAM #90 tabs 03/14/24 albuterol sulfate 90 mcg/actuation 2 puff inhalation Q6H PRN 06/13/24 aerosol inhaler Shortness Of Breath Or Wheezing #8.5 grams baclofen 5 mg tablet 5 mg PO TID PRN muscle spasm #30 06/13/24 tabs albuterol sulfate 2.5 mg/3 mL 2.5 mg (3 mL) inhalation Q4H PRN 06/22/24 (0.083 %) solution for nebulization Shortness Of Breath Or Wheezing #180 mL amlodipine 2.5 mg tablet 2.5 mg PO HS #90 tabs 07/17/24 cholecalciferol (vitamin D3) 125 mcg (5,000 unit) capsule 5,000 unit PO QAM fluticasone fur. 100 mcg-umeclid 62.5 mcg-vilant 25 mcg inhalat.powder (Trelegy Ellipta) 1 inh inhalation QAM vitamin E (dl, acetate) 180 mg (400 unit) capsule 180 mg PO QAM ascorbic acid (vitamin C) 500 mg tablet (Vitamin C) 500 mg PO QAM multivitamin 1 tab PO QAM zinc 50 mg tablet 50 mg PO QAM IRON INFUSION 1 dose continuous IV infusion UD PRN iron def folic acid 1 mg tablet 1 mg PO QAM cetirizine 10 mg tablet (Zyrtec) 10 mg PO QAM ciclopirox 8 % topical solution (Ciclodan) 1 applic topical DAILY triamcinolone acetonide 0.5 % topical cream (Triderm) 1 applic topical BID PRN skin irritation mecobalamin (vitamin B12) 1,000 mcg disintegrating tablet,sublingual 1,000 mcg sublingual DAILY lisinopril 20 mg tablet 20 mg PO QAM rosuvastatin 20 mg tablet 20 mg PO QAM albuterol sulfate 90 mcg/actuation aerosol inhaler 2 puff inhalation Q6H PRN Shortness Of Breath Or Wheezing baclofen 5 mg tablet 5 mg PO TID PRN muscle spasm bumetanide 1 mg tablet 1 mg PO QAM albuterol sulfate 2.5 mg/3 mL (0.083 %) solution for nebulization 2.5 mg (3 mL) inhalation Q4H PRN Shortness Of Breath Or Wheezing amlodipine 2.5 mg tablet 2.5 mg PO HS acetaminophen 500 mg tablet (Tylenol Extra Strength) 1,000 mg PO TID PRN pain pantoprazole 40 mg tablet,delayed release (Protonix) 40 mg PO BID Continue as directed IRON INFUSION 1 dose continuous IV infusion UD PRN iron def (if needed) STOP taking 2 weeks before surgery (or as soon as possible if surgery is within 2 weeks) vitamin E (dl, acetate) 180 mg (400 unit) capsule 180 mg PO QAM STOP taking 24 hours before surgery ciclopirox 8 % topical solution (Ciclodan) 1 applic topical DAILY triamcinolone acetonide 0.5 % topical cream (Triderm) 1 applic topical BID PRN skin irritation DO NOT take the morning of surgery cholecalciferol (vitamin D3) 125 mcg (5,000 unit) capsule 5,000 unit PO QAM ascorbic acid (vitamin C) 500 mg tablet (Vitamin C) 500 mg PO QAM multivitamin 1 tab PO QAM zinc 50 mg tablet 50 mg PO QAM folic acid 1 mg tablet 1 mg PO QAM cetirizine 10 mg tablet (Zyrtec) 10 mg PO QAM mecobalamin (vitamin B12) 1,000 mcg disintegrating tablet,sublingual 1,000 mcg sublingual DAILY lisinopril 20 mg tablet 20 mg PO QAM bumetanide 1 mg tablet 1 mg PO QAM Take morning of surgery With a small sip of water, OTHERWISE NOTHING TO EAT OR DRINK AFTER MIDNIGHT: fluticasone fur. 100 mcg-umeclid 62.5 mcg-vilant 25 mcg inhalat.powder (Trelegy Ellipta) 1 inh inhalation QAM rosuvastatin 20 mg tablet 20 mg PO QAM albuterol sulfate 90 mcg/actuation aerosol inhaler 2 puff inhalation Q6H PRN Shortness Of Breath Or Wheezing (use if needed; please bring rescue inhaler with you to hospital day of surgery if possible) baclofen 5 mg tablet 5 mg PO TID PRN muscle spasm (if needed) albuterol sulfate 2.5 mg/3 mL (0.083 %) solution for nebulization 2.5 mg (3 mL) inhalation Q4H PRN Shortness Of Breath Or Wheezing (if needed) acetaminophen 500 mg tablet (Tylenol Extra Strength) 1,000 mg PO TID PRN pain (if needed) pantoprazole 40 mg tablet,delayed release (Protonix) 40 mg PO BID Take evening before surgery albuterol sulfate 90 mcg/actuation aerosol inhaler 2 puff inhalation Q6H PRN Shortness Of Breath Or Wheezing (if needed) baclofen 5 mg tablet 5 mg PO TID PRN muscle spasm (if needed) albuterol sulfate 2.5 mg/3 mL (0.083 %) solution for nebulization 2.5 mg (3 mL) inhalation Q4H PRN Shortness Of Breath Or Wheezing (if needed) amlodipine 2.5 mg tablet 2.5 mg PO HS acetaminophen 500 mg tablet (Tylenol Extra Strength) 1,000 mg PO TID PRN pain (if needed) pantoprazole 40 mg tablet,delayed release (Protonix) 40 mg PO BID Other Notes If you have any questions please call us at [phone] or [phone] or [phone] or [phone]
--- NOTE | 2024-08-01 09:05 | Anesthesiology Consultation ---
Date of Service August 01, 2024 Assessment & Plan (1) Encounter for pre-operative examination: Chart Review Chart Review: Acceptable Risk for Surgery and Patient seen in Pre Admission Testing - Patient is NOT an OPJ candidate due to nature of procedure (currently SDA) Per PAT appt on 08/01/24, no recent illness/disease exposures, illness related symptoms, or recent illness/disease positive tests. Will leave to surgeon's discretion if preop Covid testing needed Patient seen by cardio 10/06/23= seen for routine cardiology follow up. CAD- no symptoms. BP mildly elevated- repeat BP improved to 130/80. Increased right leg edema and swelling since right TKA. Postoperative venous duplex scan showed no DVT. Patient is on AC. No bleeding complaints. HLD- on statin. From a cardiac standpoint- continue current medication. Follow up with ortho surgery tomorrow. Routine cardio visit in one year. Right TKA 09/22/23= Done under SAB at L3-4. Teaching & Discussion Pre-Anesthesia Teaching/Discussion Notes: Instructed NPO after midnight before surgery,except medications with 15 cc of water. Medication instructions provided according to the PAT guidelines. History Surgery Operation Date: 08/24/24 08:50 Proposed Procedures p Right Revision Total Knee Arthroplasty - Teddy Camargo MD Height/Weight Height: 5 ft 9.5 in Weight: 145.8 kg Allergies Allergy/AdvReac Type Severity Reaction Status Date / Time Iodinated Contrast Media AdvReac Intermediate Vomiting Verified 07/25/24 09:37 Medications Home Medications Medication Instructions Recorded Confirmed Last Taken cholecalciferol (vitamin D3) 125 5,000 unit PO QAM 07/24/21 07/25/24 09/21/23 10:30 mcg (5,000 unit) capsule fluticasone fur. 100 mcg-umeclid 1 inh inhalation QAM 10/28/21 07/25/24 09/21/23 10:30 62.5 mcg-vilant 25 mcg inhalat.powder (Trelegy Ellipta) vitamin E (dl, acetate) 180 mg 180 mg PO QAM 10/28/21 07/25/24 09/01/23 (400 unit) capsule ascorbic acid (vitamin C) 500 mg 500 mg PO QAM 09/25/22 07/25/24 09/21/23 10:30 tablet (Vitamin C) multivitamin 1 tab PO QAM 09/25/22 07/25/24 09/21/23 10:30 zinc 50 mg tablet 50 mg PO QAM 09/25/22 07/25/24 09/21/23 10:30 syringe with needle 3 mL 23 x 1" #50 ea 11/20/22 06/15/24 Unknown (BD SafetyGlide Syringe) IRON INFUSION 1 dose continuous IV infusion UD 02/09/23 07/25/24 Unknown PRN iron def folic acid 1 mg tablet 1 mg PO QAM #90 tabs 06/17/23 07/25/24 09/21/23 10:30 cetirizine 10 mg tablet (Zyrtec) 10 mg PO QAM 07/26/23 07/25/24 09/21/23 10:30 ciclopirox 8 % topical solution 1 applic topical DAILY 09/22/23 07/25/24 Unknown (Ciclodan) triamcinolone acetonide 0.5 % 1 applic topical BID PRN skin 09/22/23 07/25/24 Unknown topical cream (Triderm) irritation 3-in-1 Commode #1 ea 09/24/23 06/15/24 Unknown Shower Chair #1 ea 09/24/23 06/15/24 Unknown Donaldo Hose #1 ea 09/24/23 06/15/24 Unknown Wheeled Walker #1 ea 09/24/23 06/15/24 Unknown mecobalamin (vitamin B12) 1,000 1,000 mcg sublingual DAILY #30 tabs 01/10/24 07/25/24 Unknown mcg disintegrating tablet,sublingual lisinopril 20 mg tablet 20 mg PO QAM #90 tabs 03/06/24 07/25/24 Unknown rosuvastatin 20 mg tablet 20 mg PO QAM #90 tabs 03/14/24 07/25/24 Unknown albuterol sulfate 90 mcg/actuation 2 puff inhalation Q6H PRN 06/13/24 07/25/24 Unknown aerosol inhaler Shortness Of Breath Or Wheezing #8.5 grams baclofen 5 mg tablet 5 mg PO TID PRN muscle spasm #30 06/13/24 07/25/24 Unknown tabs bumetanide 1 mg tablet 1 mg PO QAM 06/13/24 07/25/24 Unknown albuterol sulfate 2.5 mg/3 mL 2.5 mg (3 mL) inhalation Q4H PRN 06/22/24 07/25/24 Unknown (0.083 %) solution for nebulization Shortness Of Breath Or Wheezing #180 mL amlodipine 2.5 mg tablet 2.5 mg PO HS #90 tabs 07/17/24 07/25/24 Unknown acetaminophen 500 mg tablet 1,000 mg PO TID PRN pain 07/25/24 07/25/24 Unknown (Tylenol Extra Strength) pantoprazole 40 mg tablet,delayed 40 mg PO BID 07/25/24 07/25/24 Unknown release (Protonix) Past Medical History Medical History (Updated 08/01/24 @ 09:20 by Archana Stahl PA-C) Anemia Iron Infusions - CCP - most recently had 3x 06/2024 - PRN Aortic root aneurysm 3.8cm per 02/22/24 CT of thorax Asthma Uses Trelegy and PRN inhaler - [facility] Dr Giles Balance disorder "at times" as per patient - cane, walker, crutches, wheelchair PRN Chronic venous insufficiency - Follows with [place] vascular surgery - s/p left GSV adhesive ablation (Venaseal) and right GSV ultrasound guided foam sclerotherapy (Varithena). COPD (chronic obstructive pulmonary disease) [facility] Dr Giles Coronary artery disease No stents - At least 30% coronary artery stenoses noted on cardiac catheterization performed at [facility] in the late . - [facility] Cardiology Dyslipidemia GERD (gastroesophageal reflux disease) relatively controlled and stable Hematoma of left lower extremity - s/p fall 03/01/23- still has swelling in left knee area- following with PCP, ortho has drained area twice; surgeon aware - per PCP office visit 07/22/23- "traumatic seroma left lower leg- improving- following with ortho" - as per patient as of 07/25/24 - "still have fluid/blood that gets drained off" but recently told by ortho will defer draining at this time since fluid accumulation is recurrent History of bleeding ulcers no current issues as per patient History of COVID-19 (04/2020) x8 - most recently May 2024 - no hospitalizations - no issues currently History of esophageal spasm History of tuberculosis as per patient - "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 They said it would never go away. In the last years they said I've tested negative though." Hx: recurrent pneumonia multiple - at least 5x "some concurrent with covid" as per patient - no issues currently Hypertension Neuropathy Bilateral Lower Extremities "It came from my shoulder surgery" as per patient - has went to [facility] in past, no longer Obstructive sleep apnea no device Painful total knee replacement, right reason for procedure Exercise / Class Metabolic Activity III < 4 Walking/Shop/Light housework (one flight of stairs - no chest pain or SOB- goes very slow/only goes up once daily- uses cane/walker for ambulation ) Past Family History Family History Father , age 63 Prostate cancer Skin cancer Myocardial infarction Diabetes CHF (congestive heart failure) Emphysema lung Mother , age 64 Myocardial infarction Diabetes Brother Coronary heart disease Other Hypertension Denies family history of Ovarian cancer Breast cancer Colorectal cancer Past Surgical History Surgical History History of esophagogastroduodenoscopy (EGD) History of lung biopsy benign - [facility] [place] [facility] Dr Giles History of prior ablation treatment pt denies ever having - Status post left greater saphenous vein endovenous ablation February 10, 2023 with Venaseal. Status post right greater saphenous vein sclerotherapy with Varithena February 24, 2023. 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 No hx of seizures, stroke, [place]. No hx of blood clots or blood transfusions Physical Exam Vital Signs VITALS BP 116/75 P 72 TEMP 97.4 SP02 94% RESP 16 Constitutional no acute distress ENMT Mouth: no TMJ clicking Thyromental Distance: > or= 3.5 Finger Breadths (3.5) Mallampati Class: II Missing all teeth Neck + limited neck extension (mild) and + facial hair (advised to shave/trim ) Respiratory normal respiratory effort; no respiratory distress Auscultation: lungs clear to auscultation bilaterally; no wheezes Cardiovascular Rate/Rhythm: regular rate and regular rhythm Heart Sounds: no murmur Vessels: no carotid bruit Musculoskeletal Spine: + pain with cervical ROM (mild dizziness with neck extension ) Extremities: extremities normal to inspection Psychiatric Orientation: alert Lab Results Anesthesia Preop Results Results Anesthesia Widget: WBC 7.75 K/ul (4.8-10.8) 08/01/24 Hgb 14.3 g/dl (14.0-18.0) 08/01/24 Hct 42.6 % (42.0-52.0) 08/01/24 Plt 259 K/uL (130-400) 08/01/24 Na 137 mmol/L (136-145) 08/01/24 K 4.3 mmol/L (3.5-5.1) 08/01/24 Cl 104 mmol/L (98-107) 08/01/24 CO2 30 mmol/L (21-32) 08/01/24 BUN 13 mg/dl (6-23) 08/01/24 Creat 0.93 mg/dl (0.6-1.4) 08/01/24 Glucose Level 108 mg/dl (70-99(Fasting)) H 08/01/24 PT 11.2 Seconds (9.0-12.0) 08/01/24 PTT 31 Seconds (21-31) 08/01/24 INR 1.0 (0.9-1.1) 08/01/24 Blood Type O Positive 08/01/24 Antibody Screen NEGATIVE 08/01/24 Testing Electrocardiogram Date: 05/31/24 SR at 67bpm Normal EKG per cardio Chest X-Ray Date: 06/07/24 Findings: + NAD No definite acute displaced rib fracture Echocardiogram Date: 04/28/23 EF: 60-65% LV Function: normal RWMA: + none Other Findings: + LVH (mild/concentric) Valvular Disease: + no significant valvular disease Grossly normal RV size and function Stress Test Date: 12/01/22 Type: nuclear Impression: 1. Negative myocardial perfusion study for significant ischemia. 2. Fixed defects may represent small infarct, but with normal wall motion, could be artifact related. 3. Normal wall motion and LV systolic function. EF 69%. 4. Lexiscan induced chest pain. 5. Nondiagnostic Lexiscan ECG. Other Testing CT thorax 02/22/24= Small 3mm pulmonary nodule in the right lower lobe and 2mm left lower lobe. 3.8cm aortic root aneurysm. Hypodense nodule in the left lobe of thyroid. Ultrasound thyroid is recommended for further evaluation. Dilated and patulous thoracic esophagus, maximum diameter measuring 5.7cm with no significant wall thickening (Pt states reflux stable with PPI). Dedicated upper GI endoscopy is recommended for further evaluation. When compared to prior study 05/04/2022- there are no significant interval changes
--- NOTE | 2024-08-19 12:06 | History & Physical Report ---
Date of Service August 19, 2024 Assessment & Plan (1) Painful total knee replacement, right: 64-year-old male with multiple medical comorbidities 10 months out from right knee replacement with recent onset of pain status post a fall. X-ray suggest tibial loosening. Infectious workup has been negative to date. This is a bit of an unusual situation but he is likely somewhat osteopenic due to gastric bypass surgery and this may be aseptic loosening. The workup today has been negative. Plan: We discussed treatment option with the patient. He cannot keep going like he is going as he is just developed increased pain discomfort. Organ to take him to the operating room and revise his knee. If there is any signs of infection we may place an antibiotic spacer. If not we will assess all components and revise anything loose. It looks like is just his tibial tray. The risks and benefits of this procedure explained. Informed consent was obtained. Will use Xarelto for DVT prophylaxis. Will likely put some antibiotics in the cement. He is planned to do outpatient therapy at [facility] postoperatively. (2) Morbid obesity: (3) Dyslipidemia: (4) Polyneuropathy: (5) GERD (gastroesophageal reflux disease): (6) Hypertension: History of Present Illness Chief Complaint: . Persistent right knee pain and discomfort status post total knee replacement 10 months ago. Primary Care Provider: Teri Armstrong DO . The patient is a 64-year-old morbidly obese gentleman with multiple medical comorbidities who presents for persistent right knee pain after a knee replacement. He is now about 10 months out from a total knee replacement which was uncomplicated. He really did pretty well until about 2 and half months ago when he sustained a fall. Since then he is at increased pain discomfort in his knee. X-rays as she suggested loosening of the tibial tray. We tried to treat him conservatively for a little while to see how he did. His symptoms only progressed. He is developed increased pain discomfort. Trouble working or walking or standing any more than a couple hours. He had an infectious workup which is all been negative to date. We tried him in a brace which did not fit and did not help. He is having trouble walking and doing his job. He would like to have his knee fixed. Once again for the first 8 months or so he was doing fine. Allergies Allergy/AdvReac Type Severity Reaction Status Date / Time Iodinated Contrast Media AdvReac Intermediate Vomiting Verified 07/25/24 09:37 Home Medications Medication Instructions Recorded Confirmed Type cholecalciferol (vitamin D3) 125 5,000 unit PO QAM 07/24/21 07/25/24 History mcg (5,000 unit) capsule fluticasone fur. 100 mcg-umeclid 1 inh inhalation QAM 10/28/21 07/25/24 History 62.5 mcg-vilant 25 mcg inhalat.powder (Trelegy Ellipta) vitamin E (dl, acetate) 180 mg 180 mg PO QAM 10/28/21 07/25/24 History (400 unit) capsule ascorbic acid (vitamin C) 500 mg 500 mg PO QAM 09/25/22 07/25/24 History tablet (Vitamin C) multivitamin 1 tab PO QAM 09/25/22 07/25/24 History zinc 50 mg tablet 50 mg PO QAM 09/25/22 07/25/24 History syringe with needle 3 mL 23 x 1" #50 ea 11/20/22 06/15/24 Rx (BD SafetyGlide Syringe) IRON INFUSION 1 dose continuous IV infusion UD 02/09/23 07/25/24 History PRN iron def folic acid 1 mg tablet 1 mg PO QAM #90 tabs 06/17/23 07/25/24 Rx cetirizine 10 mg tablet (Zyrtec) 10 mg PO QAM 07/26/23 07/25/24 History ciclopirox 8 % topical solution 1 applic topical DAILY 09/22/23 07/25/24 History (Ciclodan) triamcinolone acetonide 0.5 % 1 applic topical BID PRN skin 09/22/23 07/25/24 History topical cream (Triderm) irritation 3-in-1 Commode #1 ea 09/24/23 06/15/24 Rx Shower Chair #1 ea 09/24/23 06/15/24 Rx Donaldo Hose #1 ea 09/24/23 06/15/24 Rx Wheeled Walker #1 ea 09/24/23 06/15/24 Rx mecobalamin (vitamin B12) 1,000 1,000 mcg sublingual DAILY #30 tabs 01/10/24 07/25/24 Rx mcg disintegrating tablet,sublingual lisinopril 20 mg tablet 20 mg PO QAM #90 tabs 03/06/24 07/25/24 Rx rosuvastatin 20 mg tablet 20 mg PO QAM #90 tabs 03/14/24 07/25/24 Rx albuterol sulfate 90 mcg/actuation 2 puff inhalation Q6H PRN 06/13/24 07/25/24 Rx aerosol inhaler Shortness Of Breath Or Wheezing #8.5 grams baclofen 5 mg tablet 5 mg PO TID PRN muscle spasm #30 06/13/24 07/25/24 Rx tabs bumetanide 1 mg tablet 1 mg PO QAM 06/13/24 07/25/24 History amlodipine 2.5 mg tablet 2.5 mg PO HS #90 tabs 07/17/24 07/25/24 Rx acetaminophen 500 mg tablet 1,000 mg PO TID PRN pain 07/25/24 07/25/24 History (Tylenol Extra Strength) pantoprazole 40 mg tablet,delayed 40 mg PO BID 07/25/24 07/25/24 History release (Protonix) albuterol sulfate 2.5 mg/3 mL 2.5 mg (3 mL) inhalation Q4H PRN 08/03/24 Rx (0.083 %) solution for nebulization Shortness Of Breath Or Wheezing #180 mL Past Med/Surg History Problem List Encounter for pre-operative examination Painful total knee replacement, right Morbid obesity Lumbar spondylosis Bilateral hip joint arthritis Family history of premature coronary heart disease Dyslipidemia B12 deficiency Polyneuropathy Idiopathic polyneuropathy History of right shoulder replacement (06/18/22) Iron deficiency pt reports IV ferritin annually, intolerant of oral supplementation. Next infusion 07/27/23. - Follows with Dr. Samson Marie ([place]) Arthritis of right glenohumeral joint Bilateral primary osteoarthritis of knee Degenerative joint disease, right, ankle Coronary artery disease, non-occlusive At least 30% coronary artery stenoses noted on cardiac catheterization performed at [facility] in the late . Obstructive sleep apnea NO DEVICE, CAN NOT TOLERATE Anemia GERD (gastroesophageal reflux disease) controlled, stable per pt COPD (chronic obstructive pulmonary disease) Breath stable Asthma controlled w/ inhaler use; last albuterol inhaler several wks ago Hypertension controlled, stable per pt Medical History Aortic root aneurysm 3.8cm per 02/22/24 CT of thorax Chronic venous insufficiency - Follows with [place] vascular [facility] - s/p left GSV adhesive ablation (Venaseal) and right GSV ultrasound guided foam sclerotherapy (Varithena). 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 They said it would never go away. In the last years they said I've tested negative though." Neuropathy Bilateral Lower Extremities "It came from my shoulder surgery" as per patient - has went to [facility] in past, no longer Painful total knee replacement, right reason for procedure Obstructive sleep apnea no device Hypertension GERD (gastroesophageal reflux disease) relatively controlled and stable Dyslipidemia Coronary artery disease No stents - At least 30% coronary artery stenoses noted on cardiac catheterization performed at [facility] in the late . - [facility] COPD (chronic obstructive pulmonary disease) [facility] Dr Giles Asthma Uses Trelegy and PRN inhaler - [facility] Dr Giles Anemia Iron Infusions - CCP - most recently had 3x 06/2024 - PRN Balance disorder "at times" as per patient - cane, walker, crutches, wheelchair PRN Hematoma of left lower extremity - s/p fall 03/01/23- still has swelling in left knee area- following with PCP, ortho has drained area twice; surgeon aware - per PCP office visit 07/22/23- "traumatic seroma left lower leg- improving- following with ortho" - as per patient as of 07/25/24 - "still have fluid/blood that gets drained off" but recently told by ortho will defer draining at this time since fluid accumulation is recurrent History of esophageal spasm History of bleeding ulcers no current issues as per patient Hx: recurrent pneumonia multiple - at least 5x "some concurrent with covid" as per patient - no issues currently History of COVID-19 (04/2020) x8 - most recently May 2024 - no hospitalizations - no issues currently Surgical History History of tooth extraction no teeth - no dentures 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 Status post right greater saphenous vein sclerotherapy with Varithena February 24, 2023. History of esophagogastroduodenoscopy (EGD) Hx of colonoscopy Hx of cardiac catheterization x2 >20 years ago - no stents - [facility] S/P gastric surgery "stomach stapling" - must have liquid diet as per patient History of lung biopsy benign - [facility] Dr Giles S/P vasectomy S/P cholecystectomy S/P hernia repair ventral, post-op gastric surgery Family History Father , age 63 Prostate cancer Skin cancer Myocardial infarction Diabetes CHF (congestive heart failure) Emphysema lung Mother , age 64 Myocardial infarction Diabetes Brother Coronary heart disease Other Hypertension Denies family history of Ovarian cancer Breast cancer Colorectal cancer Social History Smoking Status: Never smoker Second Hand Exposure: No; Do You Dip or Chew Tobacco: No; Tobacco Cessation Education Requested by Patient: No Hx Alcohol Use: No Hx Substance Use: No Preferred Language: Czech Communication Ability: Effective Visual Impairment: No Limitations Hearing Ability: Normal Photographic Aide Required: No Beliefs That Will Affect Care: None marital status: Current Living Situation: Spouse current occupational status: employed and retired 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 How many Children do You have: 2 Other Information That Helps Us Care for You: No Feels Safe at Home: Yes Safety Concerns: Feels Safe At This Time Childhood Exposure to Second-Hand Smoke: Yes Diet: regular Diet Comment: regular caffeine: Yes (tea) during the past year weight has: increased > 10 lbs Dental Care, Regularly: No Physical Activity Frequency: Does not Exercise Physical Activity Frequency Comment: limited physical activity Seatbelt Use: always Sunscreen Use: Yes Assistive Devices: Cane, Crutches, Glasses, Walker and Wheelchair Review of Systems All systems reviewed & are unremarkable except as noted in HPI & below. Physical Exam . Physical examination was a large middle-age male. Looks to be in reasonably good health. Examination of the right knee and leg reveal patient ambulates with use of a cane. He clearly limps on the right side. Got a small knee effusion. His range of motion is 0 about 110-115. No gross instability. He can do a good straight leg raise. No pain with hip motion. Constitutional WD/WN, vitals as above Respiratory normal respiratory effort, lungs clear to auscultation Cardiovascular RRR, no murmur, no edema Gastrointestinal (Abdomen) normal bowel sounds, soft, nontender, no hepatosplenomegaly Results & Data Results & Data Laboratory Results . Laboratory results were reviewed from the most recent labs. His white cell count is normal. Hemoglobin hematocrit are normal. Sed rate is just slightly elevated at 21 and CRP at 1.46. Knee aspirate reveals 4000 white cells with 91% polys. Cultures no growth. Synovasure test pending. Diagnostic Findings . PG Care Time/CCT Total # of Minutes Spent Total Time Spent with Patient: Total time spent is greater than 50% in coordination of care (as documented) at patient's floor/unit and/or counseling patient: Coding Level of Care Code None Diagnoses Painful total knee replacement, right T84.84XA; Z96.651 Morbid obesity E66.01 Dyslipidemia E78.5 Polyneuropathy G62.9 GERD (gastroesophageal reflux disease) K21.9 Hypertension I10
[~2024-08-24 09:01] MED LIST: BUPIVACAINE 0.5 % 5 MG/1 ML PF 10ML VIAL ONE; ROPIVACAINE 0.5% 5 MG/ML 30 ML VIAL ONE
--- NOTE | 2024-08-24 09:14 | History & Physical Bridge Note ---
Date of Service August 24, 2024 History & Physical Bridge Note I have examined the patient, reviewed the History & Physical and in the interval since the performance of the History & Physical I have noted the following changes of clinical significance: no changes noted
[2024-08-24] MEDS: LR 500ML BOLUS, THEN 15ML/HR IV SCH (09:20)
[2024-08-24] MEDS: LR 60ML/HR IV SCH (09:44)
[2024-08-24] MEDS: ACETAMINOPHEN 500 MG TAB PO SCH ×2 (09:45→15:40)
[2024-08-24] MEDS: METOCLOPRAMIDE HCL 10 MG TABLET PO SCH (09:46)
[2024-08-24] MEDS: CeleBREX 200 MG CAP PO SCH (09:46)
[2024-08-24] MEDS: FAMOTIDINE 20 MG TAB PO SCH (09:46)
[2024-08-24] MEDS: dexAMETHasone**PF** 10 MG/ML VIAL IV SCH (09:46)
[2024-08-24] MEDS ORDERED: MIDAZOLAM HCL 1 MG/ML 2ML VIAL ONE ×2 (09:48→12:36)
[2024-08-24] MEDS ORDERED: fentaNYL citrate PF 100 MCG/2 ML VIAL ONE (09:48)
[2024-08-24] MEDS ORDERED: PROPOFOL IV EMULSION 10 MG/ML 20 ML VIAL IV ONE ×2 (09:50)
[2024-08-24] MEDS ORDERED: LIDOCAINE 2% 2 ML VIAL/AMP(20MG/ML) INFIL ONE (09:50)
[2024-08-24] MEDS ORDERED: ONDANSETRON INJ 2 MG/ML 2 ML VIAL ONE (09:50)
[2024-08-24] MEDS ORDERED: ONDANSETRON INJ 2 MG/ML 2 ML VIAL IV PRN ×2 (10:19→15:17)
[2024-08-24] MEDS ORDERED: ePHEDrine sulfate 50 MG/ML AMP IV PRN (10:19)
[2024-08-24] MEDS ORDERED: ATROPINE SULFATE 0.1 MG/ML 10ML SYR IV PRN (10:19)
[2024-08-24] MEDS ORDERED: fentaNYL citrate PF 100 MCG/2 ML VIAL IV PRN (10:19)
[2024-08-24] MEDS ORDERED: ePHEDrine sulfate 50 MG/5 ML SYR ONE (11:46)
[2024-08-24] MEDS: ceFAZolin 3000MG 3,000 MG/72.5 ML BAG IV SCH (11:52)
[2024-08-24] MEDS: ORTHO JOINT ANESTHETIC ONE (12:24)
[2024-08-24] MEDS: ROPIV 0.5% 246mg, Ketorolac 30mg, EPINEPHrine 0.5mg in NSS INFIL SCH (12:24)
[2024-08-24] MEDS: TRANEXAMIC ACID 1,000 MG **IV Intra-op IV SCH (12:51)
[2024-08-24] MEDS: VANCOMYCIN HCL 1000MG/20ML VIAL ONE (13:07)
--- NOTE | 2024-08-24 13:56 | Operative Report ---
PG Post Operative Report Pre & Post Diagnosis Operation Date: 08/24/24 10:40 Pre-Op Diagnosis: Right Painful Total Knee Replacement with aseptic loosening of the tibial tray Post-Op Diagnosis: Right Painful Total Knee Replacement with aseptic loosening of the tibial tray. I identified the patient and participated in the time-out.: Yes Procedure Operation Date: 08/24/24 10:40 Actual Procedures p Right Knee replacement revision of Tibia(Right) - Teddy Camargo MD Surgeon Teddy Camargo MD Regional Program Manager Oseas Myles PA-C Estimated Blood Loss 100 Findings Consistent with Post-Op Diagnosis Operative findings revealed a small at best moderate size serous effusion. There was no signs of inflammation. The tibial tray was clearly loose but not grossly loose. The femoral component appeared well-fixed as with the patella component. Frozen section revealed 0 polys per high-power field. Specimens Right knee synovium sent for pathology which revealed 0 polys per high-power field. Fluid cultures x 2 1 from the joint fluid and 1 from the tibial IM canal. Anesthesia Type Spinal MAC Complications none Disposition Accompanied Patient To Recovery: No Indications The patient is a 64-year-old morbidly obese gentleman who had his knee replaced 11 months ago. He did work quite well initially but over the past several months he has developed increased pain discomfort in his knee. This did occur around the time of the fall. He was seen in clinic and the x-rays which suggested some tibial loosening. We treated him conservatively for a period of time with bracing unsuccessfully. His symptoms progressed. We did an extensive infectious workup which was negative. He elected proceed with revision as his pain was disabling. Description of Procedure Operative implants consist of: 1. Biomet Vanguard size 75 tibial tray. 2. 5 mm medial and lateral tibial augments. 3. 16 mm posterior stabilized polyethylene insert. 4. 17 x 80 mm offset stem with a 5 mm offset and a small wing. The patient was taken the operating, identified, placed on the operating table in the supine position. All conductors were appropriately padded. IV antibiotics fibra anesthesia team. A spinal anesthetic and adductor canal block had been provided in the holding area. Right thigh high tourniquet was then placed. The right lower extremity was then prepped and draped in usual sterile fashion. The right leg was elevated and exsanguinated with use of an Esmarch and torse placed at 300 mmHg. An anterior approach of the right knee was then performed using the previous incision. Sharp dissection scalp through subcutaneous tissue down the extensor mechanism. A medial parapatellar arthrotomy incision was made. Some subperiosteal dissection was carried out medially. I did a complete synovectomy of the suprapatellar pouch and medial lateral gutters. The synovium was sent for frozen section which revealed 0 polys per high-power field. We did send some of the initial joint fluid off for stat Gram stain aerobic, and anaerobic culture. The proximal tibia was exposed. We used an osteotome to quite easily lift this tibia out of the proximal metaphysis of the tibia. It was clearly loose but not grossly loose. We then checked with the cement remove all the cement. I then assessed the femoral component and it appeared well- fixed. There is no signs of any motion. The patella component was also well- fixed. We elected proceed with a tibial revision. The tibial IM canal was entered. It was reamed up to a size 17 reamer. The reamer was left in place and the proximal tibial cut. I then prepared the proximal tibia for a 5 mm offset stem. We trialed the knee and it was 2 laxity in extension with the thickest poly so we elected to place him augments on the tibia as it was fairly loose in flexion and extension. We placed 5 mm augments. We did this the 60 mm insert fit most appropriately. We elected place his implants. Nupathe all trial implants were removed. A double batch of Palacos G cement was mixed with 2 g of vancomycin. A tibial tray was then cemented in place followed by the polyethylene. The knee was brought out in full extension till cement hardened. Final cement check was then performed. The pericapsular tissues were injected with total of 100 cc of Ortho mix. The patient did receive 1 g tranexamic acid. The tourniquet was then let down for final tourniquet time 81 minutes. Hemostasis assured with electrocautery. Wounds once again irrigated. Extensor Meclomen closed with combination of 1 PDS suture normal Vicryl suture in a [id number] fashion. Extensor Meclomen checked found to be intact through subcutaneous tissue then closed with 2 Dexon suture in a buried interrupted fashion and the skin was closed skin sukumar. Leg was then cleaned and dried and a sterile dressing with Xeroform, 4 fours, sterile cast padding, Helio bandage were applied. Patient then transferred to the recovery room in stable condition. The patient tolerated the procedure well and there were no complications. I attest to the content of the Intraoperative Record and any orders documented therein. Any exceptions are noted below.
--- NOTE | 2024-08-24 14:19 | XRay Report ---
XR knee RT 1 or 2V routine CLINICAL HISTORY: Surgical Post Op COMPARISON: 09/22/2023. FINDINGS: Right knee prosthesis shows no hardware complication. There is expected soft tissue gas. Sk in sukumar are present. IMPRESSION: Unremarkable postoperative exam. ACT 112: Negative or not required by law. Electronically signed by: Luis Manuel Grace M.D. 08/24/2024 2:18 PM
--- NOTE | 2024-08-24 14:59 | Anesthesiology Progress Note ---
Date of Service August 24, 2024 Anesthesia Post Procedure Vital Signs Vital Signs: Temp Pulse Resp BP Pulse Ox O2 Del Method O2 Flow Rate 08/24/24 14:45 74 16 104/65 95 Nasal Cannula 2 08/24/24 14:35 67 20 108/64 95 Oxymask 6 08/24/24 14:25 36.4 C L 71 19 99/60 L 97 Oxymask 6 08/24/24 14:15 71 19 92/57 L 97 Oxymask 6 08/24/24 14:05 67 20 101/60 96 Oxymask 6 08/24/24 13:55 67 20 100/59 L 97 Oxymask 6 08/24/24 13:48 36.4 C L 71 21 104/58 L 97 Oxymask 6 08/24/24 09:05 36.4 C L 76 20 131/84 96 Room Air Pain Intensity Right Knee: Pain Intensity: 2 Transfer of Care Handoff Completed per policy Notes Mental Status: alert / awake / arousable and participated in evaluation Nausea / Vomiting: adequately controlled Pain: adequately controlled Airway Patency, RR, SpO2: stable & adequate BP & HR: stable & adequate Hydration State: stable & adequate Anesthetic Complications: no major complications apparent and Pt Satisfied with anesthetic care
[2024-08-24] MEDS ORDERED: HYDROmorphone INJ 0.5 MG/0.5 ML SYR IV PRN (15:17)
[2024-08-24] MEDS ORDERED: NALOXONE HCL 0.4 MG/1 ML VIAL/CARP IV PRN (15:17)
[2024-08-24] MEDS ORDERED: oxyCODONE HCL IR 5 MG TAB (IMMEDIATE RELEASE) PO PRN (15:17)
[2024-08-24] MEDS ORDERED: ALBUTEROL 0.083% NEBU SOLN 3 ML VIAL INH PRN (15:17)
[2024-08-24] MEDS ORDERED: TRIAMCINOLONE ACET 0.5% CR 15 GM TUBE TOP PRN (15:17)
[2024-08-24] MEDS ORDERED: ALUMINUM/MAGNESIUM SUSP 30 ML UDC PO PRN (15:17)
[2024-08-24] MEDS ORDERED: MAGNESIUM HYDROXIDE SUSP 30 ML UDC PO PRN (15:17)
[2024-08-24] MEDS ORDERED: METOCLOPRAMIDE HCL INJ 5 MG/ML 2 ML VIAL IV PRN (15:17)
[2024-08-24] MEDS ORDERED: TAMSULOSIN HCL 0.4 MG CAP PO PRN (15:17)
[2024-08-24] MEDS ORDERED: ALBUTEROL HFA 8 GM INHALER INH PRN (15:17)
[2024-08-24] MEDS ORDERED: bisacodyL 10 MG SUPP PR PRN (15:17)
[2024-08-24] MEDS ORDERED: IRON INFUSION continuous IV infusion PRN (15:17)
[2024-08-24] MEDS: FAMOTIDINE/PF 20 MG/2 ML VIAL IV ONE (15:25)
[2024-08-24] MEDS ORDERED: ACETAMINOPHEN 500 MG TAB PO SCH (16:00)
[2024-08-24] MEDS: KETOROLAC TROMETHAMINE 15 MG/ML VIAL IV SCH (17:00)
[2024-08-24] MEDS: TRANEXAMIC ACID / 0.7% NACL 1,000 MG/100 ML BAG IV SCH (20:01)
[2024-08-24] MEDS: ceFAZolin 2000MG 2,000 MG/15 ML SYR IV SCH (20:01)
[2024-08-24] MEDS: DOCUSATE SODIUM 100 MG CAP PO SCH (20:08)
[2024-08-24] MEDS: PANTOprazole 40 MG TAB PO SCH (20:08)
[2024-08-24] MEDS: SENNA 8.6 MG TAB PO SCH (20:08)
[2024-08-24] MEDS: amLODIPine BESYLATE 5 MG TAB PO SCH (20:08)
[2024-08-24] MEDS ORDERED: SENNA 8.6 MG TAB PO SCH (21:00)
--- NOTE | 2024-08-25 07:17 | Orthopedic Progress Note ---
Date of Service August 25, 2024 Assessment & Plan (1) Status post revision of total replacement of right knee: He was seen and examined by Dr. Camargo today. Continue PT/OT, wbat Pain controlled DVT prophylaxis: teds, scd's, xarelto D/c planning: home today, plans to do outpatient therapy. Dressing change tomor row at home Subjective . 64 year old patient POD 1 from revision of right total knee tibial component. Pain reasonably controlled, but still didn't sleep well last night. No other complaints. Review of Systems All systems reviewed & are unremarkable except as noted in HPI & below. Physical Exam .alert and oriented. NAD. VSS Right leg: dressing clean, dry, intact. Able to dorsiflex and plantarflex appropriately. NVI Results & Data Results & Data Laboratory Results . Diagnostic Findings . PG Care Time/CCT Total # of Minutes Spent Total Time Spent with Patient: Total time spent is greater than 50% in coordination of care (as documented) at patient's floor/unit and/or counseling patient: Coding Level of Care Code 72143 Post Operative Follow-Up Diagnoses Status post revision of total replacement of right knee Z96.651
[2024-08-25 07:46] VITALS: TEMP 97.5
[2024-08-25] MEDS: CETIRIZINE HCL 10 MG TABLET PO SCH (08:18)
[2024-08-25] MEDS: CHOLECALCIFEROL 125 MCG (5,000 UNITS) TAB PO SCH (08:18)
[2024-08-25] MEDS: TOCOPHERYL, DL-ALPHA 400 UNITS 180 MG CAP PO SCH (08:19)
[2024-08-25] MEDS: CYANOCOBALAMIN (B-12) 500 MCG TABLET PO SCH (08:19)
[2024-08-25] MEDS: FOLIC ACID 1 MG TAB PO SCH (08:20)
[2024-08-25] MEDS: ASCORBIC ACID 500 MG TAB PO SCH (08:20)
[2024-08-25] MEDS: BACLOFEN 10 MG TAB PO PRN (08:20)
[2024-08-25] MEDS: ROSUVASTATIN CALCIUM 20 MG TAB PO SCH (08:21)
[2024-08-25] MEDS: MULTIVITAMIN TAB PO SCH (08:21)
[2024-08-25] MEDS: BUMETANIDE 1 MG TAB PO SCH (08:21)
[2024-08-25] MEDS: lisinopril 20 MG TAB PO SCH (08:21)
[2024-08-25] MEDS: FLUTICASONE FUROATE 100MCG 14 PUFFS/INHALER INH SCH (08:23)
[2024-08-25] MEDS: UMECLIDINIUM/VILANTEROL 62.5/25MCG 7 PUFFS/INHALER INH SCH (08:31)
[2024-08-25] MEDS: dexAMETHasone 10 MG in SYRINGE 0 ML IV SCH (08:32)
[2024-08-25] MEDS ORDERED: NON-FORMULARY MEDICATION (Multivitamin Tablet) PO SCH (09:00)
[2024-08-25] MEDS ORDERED: NON-FORMULARY MEDICATION (Zinc 50 mg Tablet) PO SCH (09:00)
[2024-08-25 09:43] LABS: Hematocrit (blood only) 38.5 % (42.0-52.0); Hemoglobin 13.1 g/dl (14.0-18.0); Mean Corpuscular Hemoglobin 28.6 pg (25.0-34.0); Mean Corpuscular Volume 84.1 fL (80.0-100.0); Mean Platelet Volume 9.7 fL (9.4-12.4); Platelet Count 226 K/uL (130-400); RDW Coefficient of Variation 14.1 % (11.5-14.5); RDW Standard Deviation 42.7 fL (36.4-46.3); Red Blood Count 4.58 M/uL (4.70-6.10); White Blood Count 14.43 K/ul (4.8-10.8)
[2024-08-25 09:59] LABS: BUN Creatinine Ratio 19.1 (10-20); Calcium 8.6 mg/dl (8.6-10.3); Creatinine Clr Calc Pharmacy 112.4 ml/min; Potassium 3.8 mmol/L (3.5-5.1)
[2024-08-25 11:27] VITALS: BP 113/74; PULSE 66; RESP 20; O2SAT 95
[2024-08-25] MEDS ORDERED: RIVAROXABAN 10 MG TABLET PO SCH (14:00)
--- NOTE | 2024-08-29 08:55 | Discharge Summary ---
Date of Service August 29, 2024 Admission HPI (Per Admitting) . The patient is a 64-year-old morbidly obese gentleman with multiple medical comorbidities who presents for persistent right knee pain after a knee replacement. He is now about 10 months out from a total knee replacement which was uncomplicated. He really did pretty well until about 2 and half months ago when he sustained a fall. Since then he is at increased pain discomfort in his knee. X-rays as she suggested loosening of the tibial tray. We tried to treat him conservatively for a little while to see how he did. His symptoms only progressed. He is developed increased pain discomfort. Trouble working or walking or standing any more than a couple hours. He had an infectious workup which is all been negative to date. We tried him in a brace which did not fit and did not help. He is having trouble walking and doing his job. He would like to have his knee fixed. Once again for the first 8 months or so he was doing fine. Admission Exam (Per Admitting) . Physical examination was a large middle-age male. Looks to be in reasonably good health. Examination of the right knee and leg reveal patient ambulates with use of a cane. He clearly limps on the right side. Got a small knee effusion. His range of motion is 0 about 110-115. No gross instability. He can do a good straight leg raise. No pain with hip motion. Principal Diagnosis Same as "Discharge Diagnosis" noted below under Discharge Instructions. Discharge Exam .alert and oriented. NAD. VSS Right leg: dressing clean, dry, intact. Able to dorsiflex and plantarflex appropriately. NVI Discharge Data Procedures Performed Operation Date: 08/24/24 10:40 Actual Procedures p Right Knee Revision of Tibia(Right) - Teddy Camargo MD Ordered Studies 08/24/24 05:00 US - OR guided needle placemen Routine Hospital Course (1) Status post revision of total replacement of right knee: This is a 64 year old patient admitted on 08/24/24 and underwent total knee revision of tibial component. He tolerated the procedure well and there were no complications. Transferred to the PACU post op and later to the orthopedic floor for further care. He was given ancef for antibiotic prophylaxis. He was also given MARY ELLEN stockings, SCDs, and xarelto for DVT prophylaxis. Hemoglobin, geovanni tocrit, and vital signs were monitored during his hospital stay and remained stable. Did not require any blood transfusions. There were no complications during his hospital stay. By post op day #1 the patient was tolerating a liquid diet, pain was reasonably controlled with oral pain medicine, and he was participating in physical therapy. On post op day #1 the patient was discharged home. He was given printed discharge instructions including prescriptions for extra strength tylenol, aspirin, cefadroxil, xarelto, senokot, zofran, and oxycodone. Continue physical therapy, weight bearing as tolerated. Continue MARY ELLEN stockings. Follow up approximately 2 weeks post op or sooner if there are problems or concerns. PG Care Time/CCT Total # of Minutes Spent Total Time Spent with Patient: Total time spent is greater than 50% in coordination of care (as documented) at patient's floor/unit and/or counseling patient: Discharge Plan Discharge Items Patient Disposition: Home - Self-Care Reason For Visit: Right Painful Total Knee Replacement Discharge Diagnosis: Right Knee REplacement Revision Activity: Per Instructions section Weightbearing: Full weightbearing Non-emergency contact: Surgeon Call non-emergency contact if: you have any medication questions Follow-up/Referrals: Teri Armstrong, [Primary Care Provider] - Diet: Regular Addtl Attending Provider Instructions: ACTIVITY RECOMMENDATIONS: Diet: * You may resume previous diet. Physical Therapy: * You will go to physical therapy three times each week for four to six weeks after your surgery in order to regain your knee range of motion and to retrain your knee to work properly. * It is just as important to make sure you are getting your knee perfectly straight as it is to regain your knee bend. * Taking a pain pill an hour before therapy can help you have a more productive and comfortable therapy session. Home Exercise: * You were shown a series of exercises (heel props, heel slides, etc.) in the hospital. Do these exercises three to four times each day including the exercises you were shown in physical therapy. Walking: * Get up and walk several times each day. For the first four weeks, try not to stand or walk for more than one hour at a time. If you do stand or walk for more than one hour, you will not hurt anything, but your knee and leg will likely swell. * As you feel comfortable, you may change from the walker or crutches to a cane and then to independent walking. MEDICATIONS: New Medicine: * You will likely be taking one or more of these medications: 1. Oxycodone - A quick and shorter-acting pain medication. Take one to two tablets every six hours to lessen your pain. 2. Xarelto - Thins your blood to lessen the chance of forming a blood clot. * The most common side effects of pain medicine and iron are nausea and constipation. If nausea or constipation is too much of a problem or if you have any questions about your new medicines or doses, call [facility] at . We will try to help you manage these issues. "VERY IMPORTANT TO READ AND REVIEW" Pain: * The immediate post-operative period after knee replacement surgery is often quite painful. * You are given a prescription for pain medicine. You should take it, as directed, when you need it, especially before physical therapy and before going to bed. Pain that interferes with sleep is very common and can last several months. * You will likely need pain medicine for the first four to six weeks. It will not stop all of the pain. The pain will lessen and as you feel better, you may change to milder pain medicine such as Tylenol. * The most common side effects of pain medicine are nausea and constipation, so don't take more than you need. SPECIAL CARE INSTRUCTIONS: TEDs/Elastic Stockings: * The white elastic stockings help limit swelling and prevent blood clots from forming in your legs. The more you wear them, the more they work. * Wear them for six weeks after knee replacement surgery and four weeks after partial knee replacement. Incision Site Care: * Remove dressing postoperative day 2 and then shower. Keep direct shower pressure off the incision site. * After showering, cover sukumar with dry gauze and change daily or more frequently if the dressing is getting saturated with drainage. * Use the MARY ELLEN stockings to hold dressing in place. DO NOT apply tape on the skin. * May completely stop using bandage if wound is dry and no drainage * [place] are removed between 2 and 3 weeks post-op. If your follow-up appointment is made before 2 weeks, please have your appointment re- scheduled. It is too early to remove the sukumar. Prevention of Infection: * Take antibiotics one hour before any dental cleaning, dental work, urological procedure, gastrointestinal procedure or any invasive surgery in order to prevent your new joint from getting infected. * You may get the antibiotics from the doctor performing the procedure or you may call our office at [phone] before and we will call in a prescription to the pharmacy of your choice. Things to Watch For: * Drainage from the incision site that occurs more than one week after your surgery. * Severely increased knee/leg pain or swelling. * Increased redness at the incision site. * Fever above 102 degrees Fahrenheit. * Unusual chest pain or shortness of breath. * Unusual pain or burning with urination. Call [facility] at [phone] with any of the above problems or if you have any questions about your medicines or recovery. FOLLOW UP VISIT: Make an appointment to see your doctor for approximately two weeks after surgery for a progress check and staple removal by calling the office at [phone]. Pending Studies at Discharge: No Stand-Alone Forms: My [facility], Smoking Cessation Medications and DC Order Prescriptions: Continued (DME) [facility] See Rx Instructions .MEDSUPPLY Qty: 1 0RF Rx Instructions: As directed (DME) Wheeled Walker Misc See Rx Instructions .MEDSUPPLY Qty: 1 0RF Rx Instructions: As directed (DME) Shower Chair [facility] See Rx Instructions .Route Qty: 1 0RF Rx Instructions: As directed (DME) [facility] [place] Rx Instructions .MEDSUPPLY Qty: 1 0RF Rx Instructions: As directed mecobalamin (vitamin B12) 1,000 mcg tablet,disintegrating 1,000 mcg sublingual DAILY Qty: 30 0RF Rx Instructions: place tablet under tongue and allow to dissolve for at least30 secs before swallowing lisinopril 20 mg tablet 20 mg PO QAM Qty: 90 1RF rosuvastatin 20 mg tablet 20 mg PO QAM Qty: 90 3RF amlodipine 2.5 mg tablet 2.5 mg PO HS Qty: 90 1RF albuterol sulfate 2.5 mg /3 mL (0.083 %) solution for nebulization 2.5 mg inhalation Q4H PRN (Reason: Shortness Of Breath Or Wheezing) Qty: 180 2RF oxycodone 5 mg tablet 5 - 10 mg PO Q8H PRN (Reason: pain) Qty: 40 0RF Rx Instructions: Take as needed for pain. Do not take more than 6 tablets per day. ondansetron 4 mg tablet,disintegrating 4 mg PO Q8 PRN (Reason: nausea) Qty: 20 1RF Rx Instructions: Take as needed for nausea sennosides [Senokot] 8.6 mg tablet 8.6 mg PO BID 14 Days Qty: 28 0RF Rx Instructions: Take two times a day to prevent/treat constipation acetaminophen [Tylenol Extra Strength] 500 mg tablet 1,000 mg PO TID 30 Days Qty: 180 0RF Rx Instructions: Take 3 times per day to lessen pain. Xarelto 10 mg tablet 10 mg PO DAILY 30 Days Qty: 30 0RF Rx Instructions: Take 1 tablet daily for 30 days to prevent blood clots vitamin E (dl, acetate) 180 mg (400 unit) capsule 180 mg PO QAM Trelegy Ellipta 100-62.5-25 mcg blister with device 1 inh inhalation QAM (DME) BD SafetyGlide Syringe 3 mL 23 x 1" syringe See Rx Instructions .MEDSUPPLY Qty: 50 0RF Rx Instructions: As directed for B12 injections IRON INFUSION 1 dose continuous IV infusion UD PRN (Reason: iron def) Rx Instructions: MONTHLY cholecalciferol (vitamin D3) 125 mcg (5,000 unit) capsule 5,000 unit PO QAM folic acid 1 mg tablet 1 mg PO QAM Qty: 90 3RF bumetanide 1 mg tablet 1 mg PO QAM albuterol sulfate 90 mcg/actuation HFA aerosol inhaler 2 puff inhalation Q6H PRN (Reason: Shortness Of Breath Or Wheezing) Qty: 8.5 3RF multivitamin Tablet 1 tab PO QAM ascorbic acid (vitamin C) [Vitamin C] 500 mg Tablet 500 mg PO QAM zinc 50 mg Tablet 50 mg PO QAM Rx Instructions: administer on empty stomach, at least 1 hour before or after meal(s) pantoprazole [Protonix] 40 mg tablet,delayed release (DR/EC) 40 mg PO BID cetirizine [Zyrtec] 10 mg tablet 10 mg PO QAM triamcinolone acetonide [Triderm] 0.5 % cream 1 applic topical BID PRN (Reason: skin irritation) ciclopirox [Ciclodan] 8 % solution 1 applic topical DAILY Patient Comments: "I have it but I never started it" Rx Instructions: do not wash nails for 8hr post application;apply over previous coat;remove w/alcohol every 7 days Discontinued acetaminophen [Tylenol Extra Strength] 500 mg tablet 1,000 mg PO TID PRN (Reason: pain) Rx Instructions: Take 3 times per day to lessen pain. No Action cefadroxil 500 mg capsule 500 mg PO DAILY amino acids Capsule 6 cap PO DAILY Discharge Orders: Discharge Order (Routine); Ordered 08/25/24 Ordered By: Carlos Simpson/Other Patient Handouts: DVT Post Op Prevention Admission Data Admit Date/Time: 08/24/24 13:48 Attending Provider: Teddy Camargo Admit Provider: Teddy Camargo Primary Care Provider: Teri Armstrong Other Interventions: Discharge Summary Assessment (RN) Last Done: 08/25/24 11:16
== END 2024-08-25 12:16 | disposition home or self-care (01) | DRG 467 ==
LOC: ASU 09:01 → 3E 13:48
DX: Z68.42 Body mass index [BMI] 45.0-49.9, adult; G62.9 Polyneuropathy, unspecified; Y92.019 Unspecified place in single-family (private) house as the place of occurrence of the external cause; Z91.041 Radiographic dye allergy status; T84.032A Mechanical loosening of internal right knee prosthetic joint, initial encounter; Z98.84 Bariatric surgery status; Y79.2 Prosthetic and other implants, materials and accessory orthopedic devices associated with adverse incidents; M25.561 Pain in right knee; E66.01 Morbid (severe) obesity due to excess calories; Z96.611 Presence of right artificial shoulder joint; K21.9 Gastro-esophageal reflux disease without esophagitis; I10 Essential (primary) hypertension; J44.9 Chronic obstructive pulmonary disease, unspecified; W18.30XA Fall on same level, unspecified, initial encounter; T84.092A Other mechanical complication of internal right knee prosthesis, initial encounter; E78.5 Hyperlipidemia, unspecified